=== PATIENT | female | born 1935 | race Caucasian/White ===

== ENCOUNTER → 2016-07-18 | Outpatient (CLI) | payer OTHER ==
[~2016-07-18] MED LIST: ATEN-175 PO; CLR10 PO; CZR50 PO; FLUT0.0529 INTNAS; GLC500 PO; HYDC25 PO; MULT-506 PO; OMEG10007 PO; SIMV10TA2 PO; WARF2TAB PO
== END | disposition home or self-care (01) ==
LOC: C.RDSM 14:12
PROVIDERS: ATTEND Physical Medicine & Rehabilitation Sports Medicine
DX: Z96.651 Presence of right artificial knee joint (principal)

== ENCOUNTER → 2017-01-16 | Outpatient (CLI) | payer OTHER ==
--- NOTE | 2017-01-16 15:36 | MAMMOGRAPHY REPORT ---
BILATERAL DIGITAL SCREENING MAMMOGRAM WITH CAD: 01/16/2017 CLINICAL HISTORY: Routine screening. TECHNIQUE: Bilateral CC, MLO and right exaggerated lateral CC views were obtained. Current study wa s also evaluated with a Computer Aided Detection (CAD) system. COMPARISON: Comparison is made to exams dated: 01/14/2016 mammogram, 12/31/2014 mammogram, 12/30/2013 mammogram, 12/26/2012 mammogram, 12/26/2011 mammogram, and 12/22/2010 mammogram - [facility]. BREAST COMPOSITION: The tissue of both breasts is almost entirely fatty. FINDINGS: There are benign rim calcifications in both breasts. No suspicious mass, architectural di stortion or cluster of microcalcifications is seen. IMPRESSION: ACR BI-RADS CATEGORY 2: BENIGN There is no mammographic evidence of malignancy. A 1 year screening mammogram is recommended. The pa tient will receive written notification of the results. Approximately 10% of breast cancers are not detected with mammography. A negative mammographic report should not delay biopsy if a clinically suggestive mass is present. Olivia Neal M.D. ay/:01/16/2017 14:23:18 Imaging Services Director: Chana Walsh RT(R)(M), [facility] letter sent: Normal 1/2 BI-RADS Code: ACR BI-RADS Category 2: Benign
== END | disposition home or self-care (01) ==
LOC: C.MAMM 09:52
PROVIDERS: ATTEND Family Medicine
DX: Z12.31 Encounter for screening mammogram for malignant neoplasm of breast (principal)

== ENCOUNTER → 2017-05-30 | Outpatient (CLI) | payer OTHER ==
--- NOTE | 2017-05-30 09:43 | DIAGNOSTIC IMAGING REPORT ---
RIGHT SHOULDER 3 VIEWS CLINICAL HISTORY: Right shoulder injury. FINDINGS: 3 views of the right shoulder are obtained. No prior studies are available for comparison at the time of dictation. The skeletal structures are osteopenic. No fracture or dislocation is identified. Mild productive change is seen at the acromioclavicular joint. Degenerative spurring is noted in the humeral head. The glenohumeral articulation is maintained. A 10 mm calcified joint body is noted. The overlying soft tissues are normal in appearance. The visualized right lung parenchyma appears clear. IMPRESSION: 1. No acute bony abnormality is seen in the right shoulder. 2. Osteopenia with degenerative change and calcified joint body as above. Electronically signed by: Khoa Gibson M.D. 05/30/2017 9:42 AM Dictated Date/Time: 05/30/2017 9:40 AM
== END | disposition home or self-care (01) ==
LOC: C.RDSM 13:59
PROVIDERS: ATTEND Physician Assistant
DX: S49.90XA Unspecified injury of shoulder and upper arm, unspecified arm, initial encounter (principal); X58.XXXA Exposure to other specified factors, initial encounter; M85.811 Other specified disorders of bone density and structure, right shoulder

== ENCOUNTER → 2017-07-17 | Outpatient (CLI) | payer OTHER | END | disposition home or self-care (01) | LOC: C.RDSM 18:29 | PROVIDERS: ATTEND Physical Medicine & Rehabilitation Sports Medicine | DX: M17.0 Bilateral primary osteoarthritis of knee (principal); Z96.651 Presence of right artificial knee joint ==

== ENCOUNTER 2018-05-16 04:44 | Inpatient (IN) ==
[2018-05-16] MEDS ORDERED: ALBUT/IPRATROP 3MG/0.5MG NEB 3 ML VIAL INH STA (05:31)
[2018-05-16 05:52] LABS: Basophils # (auto) 0.02 K/uL (0-0.2); Basophils % (auto) 0.2 %; Eosinophils % (auto) 0.9 %; Hematocrit (blood only) 43.2 % (37-47); Hemoglobin 14.6 g/dL (12.0-16.0); Immature Granulocytes # (auto) 0.02 K/uL (0.00-0.02); Immature Granulocytes % (auto) 0.2 %; Lymphocytes # (auto) 0.54 K/uL (1.2-3.4); Lymphocytes % (auto) 4.9 %; Mean Corpuscular Hgb Conc 33.8 g/dL (32-36); Mean Corpuscular Volume 93.5 fL (80-100); Mean Platelet Volume 10.8 fL (7.4-10.4); Monocytes # (auto) 0.83 K/uL (0.11-0.59); Monocytes % (auto) 7.6 %; Neutrophils # (auto) 9.46 K/uL (1.4-6.5); Neutrophils % (auto) 86.2 %; Platelet Count 150 K/uL (130-400); RDW Standard Deviation 48.1 fL (36.4-46.3); Red Blood Count 4.62 M/uL (4.2-5.4); White Blood Count 10.97 K/uL (4.8-10.8)
[2018-05-16 06:05] LABS: Partial Thromboplastin Ratio 0.9; Partial Thromboplastin Time 23.1 Seconds (21.0-31.0); Prothrombin Time 10.6 Seconds (9.0-12.0)
[2018-05-16 06:10] LABS: Alanine Aminotransferase 85 U/L (12-78); Albumin Level 3.9 gm/dl (3.4-5.0); Aspartate Aminotransferase 42 U/L (15-37); BUN Creatinine Ratio 18.7 (10-20); Blood Urea Nitrogen 17 mg/dl (7-18); Calcium 8.9 mg/dl (8.5-10.1); Carbon Dioxide 28 mmol/L (21-32); Chloride 100 mmol/L (98-107); Creatinine Clr Calc Pharmacy 62.5 ml/min; Est GFR (African American) 69.5; Glucose 180 mg/dl (70-99); Potassium 3.9 mmol/L (3.5-5.1); Sodium 135 mmol/L (136-145)
[2018-05-16 06:15] LABS: Alkaline Phosphatase 72 U/L (45-117); Bilirubin,Total 1.1 mg/dl (0.2-1); NT Pro B Type Natriuretic Pept 210 pg/ml (0-1800); Total Protein 7.9 gm/dl (6.4-8.2); Troponin I < 0.015 ng/ml (0-0.045)
[2018-05-16] MEDS ORDERED: methylPREDNISolone 125 MG/2 ML VIAL IV STA (06:31)
--- NOTE | 2018-05-16 06:37 | XRay Report ---
XR chest 1V portable CLINICAL HISTORY: 82 years-old Female presenting with Dyspnea, cough for 4 days. TECHNIQUE: Portable upright AP view of the chest was obtained. COMPARISON: 09/26/2014. FINDINGS: Atherosclerosis of the aortic arch. Cardiac silhouette top normal in size. Mildly low lung volumes wi th hypoventilatory changes. Slight obscuration of the left costophrenic sulcus likely due to overlapp ing soft tissue or pericardial fat. No focal opacity. No large effusion or pneumothorax. Degenerative changes of the thoracic spine. Degenerative changes of the glenohumeral joints. Upper abdomen normal . IMPRESSION: 1. No acute cardiopulmonary disease. Electronically signed by: Jesus Lizarraga M.D. 05/16/2018 6:36 AM
[2018-05-16] MEDS ORDERED: ALBUT/IPRATROP 3MG/0.5MG NEB 3 ML VIAL NEB ONE (06:52)
--- NOTE | 2018-05-16 09:41 | History & Physical Report ---
Date of Service May 16, 2018 Assessment & Plan (1) Bronchitis: Patient likely has a bronchitis with some bronchospasm flu is currently pending patient be placed on azithromycin oral steroids and Xopenex inhalers along with cough suppressant and Robitussin sugar-free to maintain her normal Claritin (2) HTN (hypertension): Patient maintain her normal atenolol and losartan her losartan is not a new medicine for her (3) Diabetes: Patient states that a new medicine for her has been glimepiride her glucoses at home of been below 140 she will maintain the glimepiride and Trulicity with a loose sliding scale without carb coverage and holding metformin at this time History of Present Illness Primary Care Provider: Winston Ornelas DO Patient began developing a cough and upper respiratory symptoms approximately 4- 5 days ago. This occurred after they were out to eat. Her had recently had an upper respiratory infection that was remedied by vitamin C. 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 Patient presents with progressive worsening of a loose cough. She has had no fevers or chills at home. He is not hypoxic on presentation. Chest x-ray does not show pneumonia currently influenza is pending Allergies Allergy/AdvReac Type Severity Reaction Status Date / Time amoxicillin Allergy Anaphylaxis Verified 05/16/18 06:51 Home Medications Home Medications Medication Instructions Recorded Confirmed Type aspirin 81 mg PO DAILY 05/16/18 05/16/18 History atenolol 100 mg PO DAILY 05/16/18 05/16/18 History atorvastatin 10 mg PO DAILY 05/16/18 05/16/18 History dulaglutide [Trulicity] 1.5 unit SUBCUT WK 05/16/18 05/16/18 History gabapentin 300 mg PO TID 05/16/18 05/16/18 History glimepiride 1 mg PO QAM 05/16/18 05/16/18 History hydrochlorothiazide 25 mg PO QAM 05/16/18 05/16/18 History loratadine [Claritin] 10 mg PO DAILY 05/16/18 05/16/18 History losartan 100 mg PO QAM 05/16/18 05/16/18 History metformin 1,000 mg PO BIDM 05/16/18 05/16/18 History warphcmy-ixy-lvcf-FA-lutein 1 tab PO DAILY 05/16/18 05/16/18 History [[facility] Women] omega 7-qzs-vsz-fish oil [Fish Oil] 1 cap PO DAILY 05/16/18 05/16/18 History polyethylene glycol 3350 17 g PO DAILY PRN 05/16/18 05/16/18 History Past Med/Surg History Medical History Right knee DJD (Acute) Diabetes HTN (hypertension) Family History Other Family history non-contributory Social History Current Living Situation: Spouse Other Information That Helps Us Care for You: No Feels Safe at Home: Yes Safety Concerns: Feels Safe At This Time Smoking Status: Never smoker Hx Alcohol Use: Yes Alcohol type: wine Alcohol Intake Frequency: a few times a month Hx Substance Use: No Beliefs That Will Affect Care: None Preferred Language: Taj[place] Communication Ability: Effective Review of Systems ROS: well nourished well developed. No double vision blurry vision No problems with speech or swallowing, but sore thoat No palpitations, chest pain or pressure loose non productive cough No abdominal pain nausea vomiting diarrhea changes in appetite or weight No burning urine urine frequency or changes in color No focal joint pain or muscle pain No skin rashes or oral lesions No unusual bruising or bleeding No focused back pain or numbness or loss of strength No changes in memory or confusion Physical Exam 2 Vital Signs (Past 24 Hours): Last Vital Signs Temp 36.8 C 05/16/18 04:48 Pulse 95 H 05/16/18 09:28 Resp 20 05/16/18 09:28 BP 101/77 05/16/18 09:28 Pulse Ox 94 05/16/18 09:28 The patient appeared well nourished and normally developed. Vital signs as documented. Head exam is unremarkable. normocephalic, atraumatic Oropharynx shows some mild erythema no exudates Neck is without jugular venous distension, thyromegaly, or lymphademopathy Lungs are coarse tubular breath sounds throughout no egophony no increased fremitus no loss of breath sounds no wheezes Cardiac exam reveals Rhythm is regular. First and second heart sounds normal. Abdominal exam reveals normal bowel sounds, no masses, no organomegaly Extremities are nonedematous and both pedal pulses are present Neurologic exam is A&Ox3, no focal deficits, strength is equal bilateral Psychologically seems neither anxious or depressed Skin is warm Dry without bruises or lesions
[2018-05-16] MEDS ORDERED: CARBOHYDRATES FOR HYPOGLYCEMIA PO PRN (10:05)
[2018-05-16] MEDS ORDERED: ONDANSETRON INJ 2 MG/ML 2 ML VIAL IV PRN (10:05)
[2018-05-16] MEDS ORDERED: POLYETHYLENE (MIRALAX) 17 GM PACK PO PRN (10:05)
[2018-05-16] MEDS ORDERED: DEXTROSE 50% 50 ML SYRINGE IV PRN (10:05)
[2018-05-16] MEDS ORDERED: GLUCAGON FOR INJ 1 MG VIAL SQ PRN (10:05)
[2018-05-16] MEDS ORDERED: GLUCOSE 10 TABS/TUBE PO PRN (10:05)
[2018-05-16] MEDS ORDERED: AZITHROMYCIN 250 MG TAB PO ONE (10:05)
[2018-05-16] MEDS ORDERED: GLUCOSE 40% GEL 15 GM TUBE PO PRN (10:05)
[2018-05-16] MEDS ORDERED: ACETAMINOPHEN 325 MG TAB PO PRN (10:05)
[2018-05-16] MEDS: LOSARTAN POTASSIUM 50 MG TAB PO SCH (11:08)
[2018-05-16] MEDS: ATORVASTATIN 10 MG TAB PO SCH (11:08)
[2018-05-16] MEDS: predniSONE 20 MG TAB PO SCH (11:09)
[2018-05-16] MEDS: GLIMEPIRIDE 2 MG TAB PO SCH (11:09)
[2018-05-16] MEDS: GABAPENTIN 300 MG CAP PO SCH ×3 (11:09→20:36)
[2018-05-16] MEDS: LORATADINE 10 MG TAB PO SCH (11:10)
[2018-05-16] MEDS: ATENOLOL 50 MG TABLET PO SCH (11:10)
[2018-05-16] MEDS: ASPIRIN 81 MG ECTAB PO SCH (11:12)
[2018-05-16] MEDS: INSULIN ASPART 100 UNITS/ML 3 ML PEN SC SCH ×3 (12:59→21:04)
[2018-05-16] MEDS: LEVALBUTEROL HCL 1.25 MG/3 ML NEB NEB SCH ×2 (13:54→19:54)
[2018-05-16] MEDS: [UNRECOGNIZED DRUG - OTHER] SCH (15:06)
[2018-05-16] MEDS: GUAIFENESIN/CODEINE 200MG/20MG 10ML UDC PO PRN (20:45)
[2018-05-17] MEDS: [UNRECOGNIZED DRUG - OTHER] SCH ×2 (00:39→08:26)
[2018-05-17] MEDS: LEVALBUTEROL HCL 1.25 MG/3 ML NEB NEB SCH ×4 (02:51→20:01)
--- NOTE | 2018-05-17 04:47 | Emergency Department Note ---
Entered by Anita Gutiérrez acting as a scribe for Jody Mejia DO History of Present Illness General Chief complaint: Cough Stated complaint: COUGH Time Seen by Provider: 05/16/18 05:04 Source: patient History of Present Illness Onset (ago): day(s) 2 Location: chest Pain Consistency: + other (persistent) Maximum Pain Intensity: 3 Quality: + other (cough) Relieved By: + none Exacerbated By: + other (lying down) Associated symptoms: + denies other symptoms (abdominal pain or change in appetite) Treatments prior to arrival: other (generic cough DM) The patient is an 82 year old female who presents to the Emergency Room with complaints of a persistent cough that began 2 days ago. The patient states that the cough worsened last night, noting that she hasn't been able to sleep well the past two nights. The patient denies any abdominal pain or change in appetite. She states that she took generic cough DM [employer], but it provided no relief. The patient reports that lying down worsens her symptoms. She denies any history of lung problems, and she states that she has never has similar symptoms. The patient notes a history of diabetes. Home Medications Home Medications Medication Instructions Recorded Confirmed Type aspirin 81 mg PO DAILY 05/16/18 05/16/18 History atenolol 100 mg PO DAILY 05/16/18 05/16/18 History atorvastatin 10 mg PO DAILY 05/16/18 05/16/18 History dulaglutide [Trulicity] 1.5 unit SUBCUT WK 05/16/18 05/16/18 History gabapentin 300 mg PO TID 05/16/18 05/16/18 History glimepiride 1 mg PO QAM 05/16/18 05/16/18 History hydrochlorothiazide 25 mg PO QAM 05/16/18 05/16/18 History loratadine [Claritin] 10 mg PO DAILY 05/16/18 05/16/18 History losartan 100 mg PO QAM 05/16/18 05/16/18 History metformin 1,000 mg PO BIDM 05/16/18 05/16/18 History qahahoig-uvi-ifcn-FA-lutein 1 tab PO DAILY 05/16/18 05/16/18 History [Centrum Silver Women] omega [id number]-fish oil [Fish Oil] 1 cap PO DAILY 05/16/18 05/16/18 History polyethylene glycol 3350 17 g PO DAILY PRN 05/16/18 05/16/18 History Allergies Allergy/AdvReac Type Severity Reaction Status Date / Time amoxicillin Allergy Anaphylaxis Verified 05/16/18 06:51 Past Med/Surg History Medical History Right knee DJD (Acute) Diabetes HTN (hypertension) Family History Other Family history non-contributory Social History Current Living Situation: Spouse Other Information That Helps Us Care for You: No Feels Safe at Home: Yes Safety Concerns: Feels Safe At This Time Smoking Status: Never smoker Hx Alcohol Use: Yes Alcohol type: wine Alcohol Intake Frequency: a few times a month Hx Substance Use: No Beliefs That Will Affect Care: None Preferred Language: Ethiopian Communication Ability: Effective Review of Systems See HPI for pertinent positives & negatives. and A total of 10 systems reviewed and were otherwise negative Physical Exam Vital Signs Vital Signs - 24 hr 05/16/18 04:48 05/16/18 05:35 05/16/18 06:40 Temperature 36.8 C Temperature Source Oral Sepsis Recent Fever Within 48 Hours No Sepsis Action Taken by Nursing No Action Required Pulse Rate 87 Pulse Rate [Apical] 82 Pulse Rate [Left Finger] Pulse Rhythm [Apical] Pulse Strength [Apical] Respiratory Rate 20 20 Respiratory Effort / Characteristics Non-Labored Respiratory Depth Normal Respiratory Pattern Blood Pressure 147/75 H Blood Pressure [Right Arm] 157/65 H Blood Pressure Mean 99 Blood Pressure Mean [Right Arm] 95 Blood Pressure Position [Right Arm] Pulse Oximetry 96 93 Oxygen Delivery Method Room Air Room Air Room Air Oxygen Flow Rate 05/16/18 07:19 05/16/18 08:37 05/16/18 08:52 Temperature Temperature Source Sepsis Recent Fever Within 48 Hours Sepsis Action Taken by Nursing Pulse Rate Pulse Rate [Apical] 76 96 H Pulse Rate [Left Finger] Pulse Rhythm [Apical] Regular Pulse Strength [Apical] Normal Respiratory Rate 24 18 Respiratory Effort / Characteristics Spontaneous Non-Labored Spontaneous Respiratory Depth Normal Respiratory Pattern Regular Blood Pressure Blood Pressure [Right Arm] 131/72 Blood Pressure Mean Blood Pressure Mean [Right Arm] 91 Blood Pressure Position [Right Arm] Lying Pulse Oximetry 91 93 89 L Oxygen Delivery Method Room Air Room Air Room Air Oxygen Flow Rate 05/16/18 08:53 05/16/18 09:18 05/16/18 09:28 Temperature Temperature Source Sepsis Recent Fever Within 48 Hours Sepsis Action Taken by Nursing Pulse Rate 95 H Pulse Rate [Apical] Pulse Rate [Left Finger] Pulse Rhythm [Apical] Pulse Strength [Apical] Respiratory Rate 20 Respiratory Effort / Characteristics Spontaneous Short of Breath SOB on Exertion Respiratory Depth Shallow Respiratory Pattern Tachypnea Blood Pressure 101/77 Blood Pressure [Right Arm] Blood Pressure Mean Blood Pressure Mean [Right Arm] Blood Pressure Position [Right Arm] Pulse Oximetry 93 94 Oxygen Delivery Method Nasal Cannula Nasal Cannula Nasal Cannula Oxygen Flow Rate 2 2 4 05/16/18 10:13 05/16/18 13:54 05/16/18 16:00 Temperature 36.7 C Temperature Source Oral Sepsis Recent Fever Within 48 Hours Sepsis Action Taken by Nursing Pulse Rate Pulse Rate [Apical] 100 H Pulse Rate [Left Finger] 100 H Pulse Rhythm [Apical] Regular Pulse Strength [Apical] Normal Respiratory Rate 22 18 Respiratory Effort / Characteristics Short of Breath Non-Labored Spontaneous Short of Breath Respiratory Depth Normal Respiratory Pattern Regular Regular Blood Pressure Blood Pressure [Right Arm] 169/92 H Blood Pressure Mean Blood Pressure Mean [Right Arm] 117 Blood Pressure Position [Right Arm] Sitting Pulse Oximetry 95 95 Oxygen Delivery Method Nasal Cannula Nasal Cannula Nasal Cannula Oxygen Flow Rate 2 3 2 05/16/18 16:18 05/16/18 19:59 05/16/18 23:23 Temperature 37.1 C 36.8 C Temperature Source Oral Oral Sepsis Recent Fever Within 48 Hours Sepsis Action Taken by Nursing Pulse Rate Pulse Rate [Apical] Pulse Rate [Left Finger] 95 H 91 H 78 Pulse Rhythm [Apical] Pulse Strength [Apical] Respiratory Rate 18 18 18 Respiratory Effort / Characteristics Non-Labored Spontaneous Respiratory Depth Respiratory Pattern Blood Pressure Blood Pressure [Right Arm] 110/71 115/71 Blood Pressure Mean Blood Pressure Mean [Right Arm] 84 85 Blood Pressure Position [Right Arm] Lying Lying Pulse Oximetry 94 91 93 Oxygen Delivery Method Nasal Cannula Nasal Cannula Nasal Cannula Oxygen Flow Rate 2 2 2 05/17/18 00:20 05/17/18 02:53 Temperature Temperature Source Sepsis Recent Fever Within 48 Hours Sepsis Action Taken by Nursing Pulse Rate Pulse Rate [Apical] Pulse Rate [Left Finger] 70 Pulse Rhythm [Apical] Pulse Strength [Apical] Respiratory Rate 18 Respiratory Effort / Characteristics Non-Labored Spontaneous SOB on Exertion Non-Labored Spontaneous Respiratory Depth Normal Respiratory Pattern Regular Blood Pressure Blood Pressure [Right Arm] Blood Pressure Mean Blood Pressure Mean [Right Arm] Blood Pressure Position [Right Arm] Pulse Oximetry 94 Oxygen Delivery Method Nasal Cannula Nasal Cannula Oxygen Flow Rate 2 2 General: Mild respiratory distress, persistent cough. HEENT: Head - normocephalic and atraumatic Pupils are equal, round, and reactive to light. Extraocular eye muscles are intact, and sclera are anicteric. Nose - moist nasal mucosa without discharge. Mouth - moist buccal mucosa. Oropharynx is nonerythematous and there is no tonsillar exudate or edema noted. Neck: Supple; no JVD, nuchal rigidity, cervical lymphadenopathy, or auscultated bruits. Heart: Regular rate and rhythm. There is a normal S1 and S2 with no murmurs, clicks, or gallops appreciated. Lungs: Diffuse rales and wheezes in all lung braga. Abdomen: Soft, completely nontender, nondistended, with good bowel sounds. There are no palpable pulsatile masses or hepatosplenomegaly. There is no guarding, rigidity, or rebound noted. Extremities: No evidence of cyanosis or clubbing. There are easily palpable peripheral pulses. Trace pedal edema. Skin: warm and dry with good turgor and no rashes. Course 0524: Past medical records reviewed. The patient was evaluated in room A02, and a complete history and physical examination were performed. An IV locked was initiated and labs were drawn as above. A twelve-lead EKG was obtained along with a chest x-ray. 0531: Duoneb 3 ml INH 0631: Solumedrol 125 mg IV 0638: I checked on the patient. She was still wheezing significantly. Her O2 saturation was 91%. 0652: The patient was given an hour-long Duoneb 12 ml NEB 0729: I checked on the patient. She was coughing up thick yellow sputum. This will be collected for culture 0804: I updated the patient about her results. She wished to be admitted, because she is not making any improvements. 0809: I spoke with Dr. Colindres, [facility] [place] hospitalist, about the patient's case. He will evaluate her further. Consultations Consultation #1: I spoke with Dr. Colindres, [facility] [place] hospitalist, about the patient 's case. He will evaluate her further. Time: 08:09 Administered Medications Aspirin (Ecotrin Ectab) 81 mg PO DAILY [facility] Stop: 06/15/18 10:04 Last Admin: 05/16/18 11:12 Dose: 81 mg Atenolol (Tenormin) 100 mg PO DAILY [facility] Stop: 06/15/18 10:04 Last Admin: 05/16/18 11:10 Dose: 100 mg Atorvastatin Calcium (Lipitor) 10 mg PO DAILY [facility] Stop: 06/15/18 10:04 Last Admin: 05/16/18 11:08 Dose: 10 mg Gabapentin (Neurontin) 300 mg PO TID [facility] Stop: 06/15/18 10:04 Last Admin: 05/16/18 20:36 Dose: 300 mg Admin: 05/16/18 13:02 Dose: 300 mg Admin: 05/16/18 11:09 Dose: 300 mg Glimepiride (Amaryl) 1 mg PO QAM [facility] Stop: 06/15/18 10:04 Last Admin: 05/16/18 11:09 Dose: 1 mg Guaifenesin/Codeine Phosphate (Robitussin-Ac Sugar Free) 10 ml PO Q6H PRN PRN Reason: Cough Stop: 06/15/18 10:04 Last Admin: 05/16/18 20:45 Dose: 10 ml Insulin Aspart (Novolog Flexpen) 0 units SC ACHS [facility] Stop: 06/15/18 11:29 Last Admin: 05/16/18 21:04 Dose: 8 units Admin: 05/16/18 17:48 Dose: 4 units Admin: 05/16/18 12:59 Dose: 5 units Levalbuterol HCl (Xopenex 1.25mg/3ml Neb) 1.25 mg NEB Q6R [facility] Stop: 06/15/18 13:59 Last Admin: 05/17/18 02:51 Dose: 1.25 mg Admin: 05/16/18 19:54 Dose: 1.25 mg Admin: 05/16/18 13:54 Dose: 1.25 mg Loratadine (Claritin) 10 mg PO DAILY [facility] Stop: 06/15/18 10:04 Last Admin: 05/16/18 11:10 Dose: 10 mg Losartan Potassium (Cozaar) 100 mg PO QAM [facility] Stop: 06/15/18 10:04 Last Admin: 05/16/18 11:08 Dose: 100 mg Miscellaneous (Order Awaiting Action) 1 ea N/A QS [facility] Stop: 06/15/18 15:59 Last Admin: 05/17/18 00:39 Dose: Not Given Admin: 05/16/18 15:06 Dose: Not Given Prednisone (Prednisone) 20 mg PO QAM [facility] Stop: 06/15/18 10:04 Last Admin: 05/16/18 11:09 Dose: 20 mg Discontinued Medications Albuterol (Duoneb) 3 ml INH NOW STA Stop: 05/16/18 05:32 Last Admin: 05/16/18 05:37 Dose: 3 ml Albuterol (Duoneb) 12 ml NEB ONE ONE Stop: 05/16/18 06:53 Last Admin: 05/16/18 07:18 Dose: 12 ml Azithromycin (Zithromax) 500 mg PO NOW ONE Stop: 05/16/18 10:06 Last Admin: 05/16/18 11:11 Dose: 500 mg Methylprednisolone (Solumedrol) 125 mg IV NOW STA Stop: 05/16/18 06:32 Last Admin: 05/16/18 06:40 Dose: 125 mg Medical Decision Making Differential Diagnosis The differential diagnosis includes: bronchitis, pneumonia, heart failure, and PE Medical Records Attestation: I reviewed the patient's medical records. Home Medications Current Medication List: was personally reviewed by me Laboratory Data Attestation: I reviewed the patient's lab results. Result diagrams: 05/16/18 05:40 05/16/18 05:40 Lab Results 05/16/18 05/16/18 05/16/18 Range/Units 05:40 05:40 05:40 WBC 10.97 H (4.8-10.8) K/uL RBC 4.62 (4.2-5.4) M/uL Hgb 14.6 (12.0-16.0) g/dL Hct 43.2 (37-47) % MCV 93.5 (80-100) fL MCH 31.6 (25-34) pg MCHC 33.8 (32-36) g/dL RDW Std Deviation 48.1 H (36.4-46.3) fL RDW Coeff of Chidi 14.0 (11.5-14.5) % Plt Count 150 (130-400) K/uL MPV 10.8 H (7.4-10.4) fL Immature Gran % (Auto) 0.2 % Neut % (Auto) 86.2 % Lymph % (Auto) 4.9 % [place] % (Auto) 7.6 % Eos % (Auto) 0.9 % Baso % (Auto) 0.2 % Immature Gran # (Auto) 0.02 (0.00-0.02) K/uL Neut # (Auto) 9.46 H (1.4-6.5) K/uL Lymph # (Auto) 0.54 L (1.2-3.4) K/uL [place] # (Auto) 0.83 H (0.11-0.59) K/uL Eos # (Auto) 0.10 (0-0.5) K/uL Baso # (Auto) 0.02 (0-0.2) K/uL PT 10.6 (9.0-12.0) Seconds INR 1.0 (0.9-1.1) APTT 23.1 (21.0-31.0) Seconds PTT Ratio 0.9 Sodium 135 L (136-145) mmol/L Potassium 3.9 (3.5-5.1) mmol/L Chloride 100 (98-107) mmol/L Carbon Dioxide 28 (21-32) mmol/L Anion Gap 7.0 (3-11) BUN 17 (7-18) mg/dl Creatinine 0.90 (0.6-1.2) mg/dl Est Cr Clr Drug Dosing 62.5 ml/min Est GFR ( Amer) 69.5 Est GFR (Non-Af Amer) 60.0 BUN/Creatinine Ratio 18.7 (10-20) Glucose 180 H (70-99) mg/dl POC Glucose (70-99) Calcium 8.9 (8.5-10.1) mg/dl Total Bilirubin 1.1 H (0.2-1) mg/dl AST 42 H (15-37) U/L ALT 85 H (12-78) U/L Alkaline Phosphatase 72 (45-117) U/L Troponin I < 0.015 (0-0.045) ng/ml NT-Pro-B Natriuret Pep 210 (0-1800) pg/ml Total Protein 7.9 (6.4-8.2) gm/dl Albumin 3.9 (3.4-5.0) gm/dl Globulin 4.0 (2.5-4.0) gm/dl Albumin/Globulin Ratio 1.0 (0.9-2) Influenza Type A Ag (Neg) Influenza Type B Ag (Neg) 05/16/18 05/16/18 05/16/18 Range/Units 08:29 11:09 17:06 WBC (4.8-10.8) K/uL RBC (4.2-5.4) M/uL Hgb (12.0-16.0) g/dL Hct (37-47) % MCV (80-100) fL MCH (25-34) pg MCHC (32-36) g/dL RDW Std Deviation (36.4-46.3) fL RDW Coeff of Chidi (11.5-14.5) % Plt Count (130-400) K/uL MPV (7.4-10.4) fL Immature Gran % (Auto) % Neut % (Auto) % Lymph % (Auto) % [place] % (Auto) % Eos % (Auto) % Baso % (Auto) % Immature Gran # (Auto) (0.00-0.02) K/uL Neut # (Auto) (1.4-6.5) K/uL Lymph # (Auto) (1.2-3.4) K/uL [place] # (Auto) (0.11-0.59) K/uL Eos # (Auto) (0-0.5) K/uL Baso # (Auto) (0-0.2) K/uL PT (9.0-12.0) Seconds INR (0.9-1.1) APTT (21.0-31.0) Seconds PTT Ratio Sodium (136-145) mmol/L Potassium (3.5-5.1) mmol/L Chloride (98-107) mmol/L Carbon Dioxide (21-32) mmol/L Anion Gap (3-11) BUN (7-18) mg/dl Creatinine (0.6-1.2) mg/dl Est Cr Clr Drug Dosing ml/min Est GFR ( Amer) Est GFR (Non-Af Amer) BUN/Creatinine Ratio (10-20) Glucose (70-99) mg/dl POC Glucose 258 H 245 H (70-99) Calcium (8.5-10.1) mg/dl Total Bilirubin (0.2-1) mg/dl AST (15-37) U/L ALT (12-78) U/L Alkaline Phosphatase (45-117) U/L Troponin I (0-0.045) ng/ml NT-Pro-B Natriuret Pep (0-1800) pg/ml Total Protein (6.4-8.2) gm/dl Albumin (3.4-5.0) gm/dl Globulin (2.5-4.0) gm/dl Albumin/Globulin Ratio (0.9-2) Influenza Type A Ag Neg for Influ A (Neg) Influenza Type B Ag Neg for Influ B (Neg) 05/16/18 Range/Units 20:30 WBC (4.8-10.8) K/uL RBC (4.2-5.4) M/uL Hgb (12.0-16.0) g/dL Hct (37-47) % MCV (80-100) fL MCH (25-34) pg MCHC (32-36) g/dL RDW Std Deviation (36.4-46.3) fL RDW Coeff of Chidi (11.5-14.5) % Plt Count (130-400) K/uL MPV (7.4-10.4) fL Immature Gran % (Auto) % Neut % (Auto) % Lymph % (Auto) % [place] % (Auto) % Eos % (Auto) % Baso % (Auto) % Immature Gran # (Auto) (0.00-0.02) K/uL Neut # (Auto) (1.4-6.5) K/uL Lymph # (Auto) (1.2-3.4) K/uL [place] # (Auto) (0.11-0.59) K/uL Eos # (Auto) (0-0.5) K/uL Baso # (Auto) (0-0.2) K/uL PT (9.0-12.0) Seconds INR (0.9-1.1) APTT (21.0-31.0) Seconds PTT Ratio Sodium (136-145) mmol/L Potassium (3.5-5.1) mmol/L Chloride (98-107) mmol/L Carbon Dioxide (21-32) mmol/L Anion Gap (3-11) BUN (7-18) mg/dl Creatinine (0.6-1.2) mg/dl Est Cr Clr Drug Dosing ml/min Est GFR ( Amer) Est GFR (Non-Af Amer) BUN/Creatinine Ratio (10-20) Glucose (70-99) mg/dl POC Glucose 273 H (70-99) Calcium (8.5-10.1) mg/dl Total Bilirubin (0.2-1) mg/dl AST (15-37) U/L ALT (12-78) U/L Alkaline Phosphatase (45-117) U/L Troponin I (0-0.045) ng/ml NT-Pro-B Natriuret Pep (0-1800) pg/ml Total Protein (6.4-8.2) gm/dl Albumin (3.4-5.0) gm/dl Globulin (2.5-4.0) gm/dl Albumin/Globulin Ratio (0.9-2) Influenza Type A Ag (Neg) Influenza Type B Ag (Neg) Imaging Data Attestation: I personally reviewed and interpreted this imaging study as follows : My Impression: XR CHEST 1V: No cardiomegaly. No obvious pleural effusion. Mild pulmonary congestion. ECG Data Attestation: I personally reviewed and interpreted this ECG as follows: Indication: other (persistent cough) Rate (beats per minute): 79 Rhythm: normal sinus Findings: + other (no ischemia); no ectopy Blood Pressure Blood Pressure Findings: Elevated blood pressure Blood Pressure Disposition: further management by hospitalist [facility] Narrative The patient is an 82 year old female who presents to the Emergency Room with complaints of a persistent cough that began 2 days ago. The patient developed cold-like symptoms just 2 days ago. Overnight tonight, the patient's symptoms dramatically worsened with increasing shortness of breath and wheezing. The patient has a very persistent wet cough. She received beta agonist nebulizer treatment here in the emergency department with only minimal relief of her symptoms. Chest x-ray showed no evidence of pneumonia or obvious pulmonary edema. While here in the emergency department, the patient did develop a significant wet productive cough of thick yellow sputum. I discussed the case with Dr. Colindres from the [facility] Hospitalist group and he recommended we obtain a flu swab. This was negative. They have agreed to evaluate the patient for further inpatient care. Impression & Plan SOB (shortness of breath), Bronchitis Discharge Plan Visit Data *Final* Discharge Date/Time: 05/16/18 09:28 Chief Complaint: Cough Stated Complaint: COUGH ED Provider: Jody Mejia Discharge Problem: SOB (shortness of breath), Bronchitis Patient Disposition: Admitted As Inpatient Discharge Instructions Interventions: ED Discharge Assessment Last Done: 05/16/18 09:28 The scribe's documentation has been prepared under my direction and personally reviewed by me in its entirety. I confirm that the note above accurately reflects all work, treatment, procedures, and medical decision making performed by me.
[2018-05-17 07:00] LABS: Hematocrit (blood only) 40.3 % (37-47); Hemoglobin 13.1 g/dL (12.0-16.0); Mean Corpuscular Hgb Conc 32.5 g/dL (32-36); Mean Corpuscular Volume 94.8 fL (80-100); Mean Platelet Volume 10.5 fL (7.4-10.4); Platelet Count 136 K/uL (130-400); RDW Coefficient of Variation 14.6 % (11.5-14.5); RDW Standard Deviation 50.8 fL (36.4-46.3); Red Blood Count 4.25 M/uL (4.2-5.4); White Blood Count 9.55 K/uL (4.8-10.8)
[2018-05-17 07:38] LABS: BUN Creatinine Ratio 30.4 (10-20); Creatinine Clr Calc Pharmacy 61.8 ml/min; Est GFR (African American) 68.6; Est GFR (Non-African American) 59.2; Potassium 3.5 mmol/L (3.5-5.1)
[2018-05-17 07:52] LABS: Estimated Average Glucose 128 mg/dl
[2018-05-17] MEDS: GABAPENTIN 300 MG CAP PO SCH ×3 (08:24→20:37)
[2018-05-17] MEDS: ASPIRIN 81 MG ECTAB PO SCH (08:24)
[2018-05-17] MEDS: ATENOLOL 50 MG TABLET PO SCH (08:24)
[2018-05-17] MEDS: AZITHROMYCIN 250 MG TAB PO SCH (08:24)
[2018-05-17] MEDS: ATORVASTATIN 10 MG TAB PO SCH (08:24)
[2018-05-17] MEDS: GLIMEPIRIDE 2 MG TAB PO SCH (08:25)
[2018-05-17] MEDS: predniSONE 20 MG TAB PO SCH (08:25)
[2018-05-17] MEDS: LORATADINE 10 MG TAB PO SCH (08:25)
[2018-05-17] MEDS: LOSARTAN POTASSIUM 50 MG TAB PO SCH (08:25)
[2018-05-17] MEDS: INSULIN ASPART 100 UNITS/ML 3 ML PEN SC SCH ×4 (08:28→20:37)
--- NOTE | 2018-05-17 19:37 | Hospitalist Progress Note ---
Date of Service May 17, 2018 Assessment & Plan (1) Bronchitis: Patient likely has a bronchitis with some bronchospasm flu is negative, patient be placed on azithromycin oral steroids and Xopenex inhalers along with cough suppressant and Robitussin sugar-free to maintain her normal Claritin (2) HTN (hypertension): Patient maintain her normal atenolol and losartan her losartan is not a new medicine for her (3) Diabetes: Patient states that a new medicine for her has been glimepiride her glucoses at home of been below 140 she will maintain the glimepiride and Trulicity with a loose sliding scale without carb coverage and holding metformin at this time Subjective pt is still with loose cough, still no temperature, she has no diarrhea Review of Systems ROS: well nourished well developed. No double vision blurry vision No problems with speech or swallowing No palpitations, chest pain or pressure She is a loose cough with paroxysms when she exerts herself No abdominal pain nausea vomiting diarrhea changes in appetite or weight No burning urine urine frequency or changes in color No focal joint pain or muscle pain No skin rashes or oral lesions No unusual bruising or bleeding No focused back pain or numbness or loss of strength No changes in memory or confusion Physical Exam 2 Vital Signs (Past 24 Hours): Last Vital Signs Temp 36.9 C 05/17/18 16:31 Pulse 82 05/17/18 16:31 Resp 18 05/17/18 16:31 BP 131/78 05/17/18 16:31 Pulse Ox 90 05/17/18 16:31 The patient appeared well nourished and normally developed. Vital signs as documented. Head exam is unremarkable. normocephalic, atraumatic Oropharynx remains without exudates Neck is without jugular venous distension, thyromegaly, or lymphademopathy Lungs are clear to auscultation and percussion. However she is also loose rhonchorous cough with deep exam she does not have any egophony or focal air loss Cardiac exam reveals Rhythm is regular. First and second heart sounds normal. Abdominal exam reveals normal bowel sounds, no masses, no organomegaly Extremities are nonedematous and both pedal pulses are present Neurologic exam is A&Ox3, no focal deficits, strength is equal bilateral Psychologically seems neither anxious or depressed Skin is warm Dry without bruises or lesions
[2018-05-17] MEDS: GUAIFENESIN/CODEINE 200MG/20MG 10ML UDC PO PRN (22:12)
[2018-05-18] MEDS: LEVALBUTEROL HCL 1.25 MG/3 ML NEB NEB SCH ×2 (02:10→07:46)
[2018-05-18 07:34] LABS: Hematocrit (blood only) 40.7 % (37-47); Hemoglobin 13.5 g/dL (12.0-16.0); Mean Corpuscular Hgb Conc 33.2 g/dL (32-36); Mean Corpuscular Volume 96.2 fL (80-100); Mean Platelet Volume 10.3 fL (7.4-10.4); Platelet Count 127 K/uL (130-400); RDW Coefficient of Variation 14.6 % (11.5-14.5); RDW Standard Deviation 51.6 fL (36.4-46.3); Red Blood Count 4.23 M/uL (4.2-5.4); White Blood Count 7.27 K/uL (4.8-10.8)
[2018-05-18 08:06] LABS: BUN Creatinine Ratio 33.7 (10-20); Calcium 9.1 mg/dl (8.5-10.1); Est GFR (African American) 86.6; Est GFR (Non-African American) 74.8; Potassium 3.7 mmol/L (3.5-5.1)
[2018-05-18] MEDS: GLIMEPIRIDE 2 MG TAB PO SCH (08:36)
[2018-05-18] MEDS: LORATADINE 10 MG TAB PO SCH (08:37)
[2018-05-18] MEDS: LOSARTAN POTASSIUM 50 MG TAB PO SCH (08:37)
[2018-05-18] MEDS: ATORVASTATIN 10 MG TAB PO SCH (08:38)
[2018-05-18] MEDS: ASPIRIN 81 MG ECTAB PO SCH (08:38)
[2018-05-18] MEDS: predniSONE 20 MG TAB PO SCH (08:39)
[2018-05-18] MEDS: GABAPENTIN 300 MG CAP PO SCH (08:39)
[2018-05-18] MEDS: ATENOLOL 50 MG TABLET PO SCH (08:39)
[2018-05-18] MEDS: AZITHROMYCIN 250 MG TAB PO SCH (08:40)
[2018-05-18] MEDS: INSULIN ASPART 100 UNITS/ML 3 ML PEN SC SCH (08:42)
[2018-05-18] MEDS: [UNRECOGNIZED DRUG - OTHER] SCH (10:30)
--- NOTE | 2018-05-18 13:11 | Discharge Summary ---
Date of Service May 18, 2018 Admission HPI Per Admitting Provider Patient began developing a cough and upper respiratory symptoms approximately 4- 5 days ago. This occurred after they were out to eat. Her had recently had an upper respiratory infection that was remedied by vitamin C. 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 Patient presents with progressive worsening of a loose cough. She has had no fevers or chills at home. He is not hypoxic on presentation. Chest x-ray does not show pneumonia currently influenza is pending Principal Diagnosis bronchitis bronchospasm Discharge Exam Constitutional well developed and average body habitus Eyes no conjunctival abnormality and no scleral abnormality Neck normal visual inspection and trachea midline Respiratory normal respiratory effort; no respiratory distress Auscultation: lungs clear to auscultation bilaterally Cardiovascular RRR, no murmur, no edema Gastrointestinal (Abdomen) normal bowel sounds, soft, nontender, no hepatosplenomegaly Musculoskeletal no cyanosis or clubbing, extremities motor strength 5/5 Discharge Data Allergies Allergy/AdvReac Type Severity Reaction Status Date / Time amoxicillin Allergy Anaphylaxis Verified 05/16/18 06:51 Hospital Course (1) Bronchitis: Patient likely has a bronchitis with some bronchospasm flu is negative, patient will complete azithromycin oral steroids ( for three more days no taper) and cough suppressant and Robitussin sugar-free to maintain her normal Claritin she is encouraged to follow up with dr Ornelas next week (2) HTN (hypertension): Patient maintain her normal atenolol and losartan her losartan (3) Diabetes: Patient states that a new medicine for her has been glimepiride her glucoses at home of been below 140 she will maintain the glimepiride and Trulicity plus metformin Total Time Total Time Spent Total Time Spent (In Minutes): greater than 30 minutes were required to prepare discharge Discharge Plan Discharge Items Patient Disposition: Home - Self-Care Reason For Visit: UPPER RESPIRATORY ILLNESS Discharge Diagnosis: bronchitis Discharge Goals: Decrease discomfort and Diagnostic testing Activity: Resume your previous activity Non-emergency contact: Primary Care Provider Call non-emergency contact if: you have any medication questions Follow-up/Referrals: Winston Ornelas, [Primary Care Provider] - 05/23/18 2:10 pm (Please, follow up at Dr. Winston Ornelas's office with his associate, Dr. Mays , on MondayMay 23 at 2:10 pm. *If you need to change this appointment, call the office at [phone].) Diet: Carb Consistent or DM2 Addtl Provider Instructions: please rest and recuperate, follow up with Dr Ornelas Prescriptions: New azithromycin [Zithromax] 250 mg Tablet 250 mg PO QAM Qty: 3 RF: 0 prednisone 20 mg Tablet 20 mg PO QAM Qty: 3 RF: 0 codeine-guaifenesin [Cheratussin AC] 10-100 mg/5 mL Liquid 10 ml PO Q6H PRN (Reason: cough) Qty: 120 RF: 0 Continue atorvastatin 10 mg tablet 10 mg PO DAILY RF: 0 atenolol 100 mg tablet 100 mg PO DAILY RF: 0 metformin 1,000 mg tablet 1,000 mg PO BIDM RF: 0 polyethylene glycol 3350 17 gram/dose powder 17 g PO DAILY PRN (Reason: Constipation) RF: 0 losartan 100 mg tablet 100 mg PO QAM RF: 0 omega 0-fpl-iot-fish oil [Fish Oil] 1,000 mg (120 mg-180 mg) Capsule 1 cap PO DAILY RF: 0 dulaglutide 1.5 mg/0.5 mL pen injector 1.5 unit subcut WK RF: 0 glimepiride 1 mg tablet 1 mg PO QAM RF: 0 gabapentin 300 mg capsule 300 mg PO TID RF: 0 hydrochlorothiazide 25 mg tablet 25 mg PO QAM RF: 0 loratadine [Claritin] 10 mg Tablet 10 mg PO DAILY RF: 0 fcbluidy-vlz-lqve-FA-lutein [Centrum Silver Women] 8 mg iron-400 mcg-300 mcg Tablet 1 tab PO DAILY RF: 0 aspirin 81 mg Tablet,Delayed Release (Dr/Ec) 81 mg PO DAILY RF: 0 Stand-Alone Forms: [facility] Discharge Orders: Discharge Order (Routine); Ordered 05/18/18 Ordered By: Spencer Colindres Admission Data Admit Date/Time: 05/16/18 08:38 Attending Provider: Spencer Colindres Admit Provider: Spencer Colindres Primary Care Provider: Winston Ornelas Service: Medical Other Interventions: Discharge Summary Assessment (RN) Last Done: 05/18/18 10:48 DC Date/Time DO NOT enter until pt leaves facility: 05/18/18 11:20
== END 2018-05-18 11:20 | disposition home or self-care (01) | DRG 203 ==
LOC: 4W 04:44 → ED 04:44 → 4W 09:28

== ENCOUNTER 2023-09-10 20:32 | Inpatient (IN) ==
--- OUTSIDE RECORDS SUMMARY | 2023-09-10 20:39 | External Medical Summary | Continuity of Care Document ---
Author Name Unknown Organization [facility] [address] [address] [place] [phone] Care Team Providers Care Physical Plant Manager Name Role Phone Winston Ornelas Primary Care Physician [phone] Encounter [facility] [id number] Date(s): 08/16/23 - 08/16/23 [facility] 0 [facility] 207 [facility] [address] [id number] [phone] Encounter Diagnosis Body mass index [BMI] 34.0-34.9, adult(Discharge Diagnosis) - 08/16/23 Hypertension(Discharge Diagnosis) - 08/16/23 NIDDM(Discharge Diagnosis) - 08/16/23 Low vitamin B12 level(Discharge Diagnosis) - 08/16/23 Psoriasis(Discharge Diagnosis) - 08/16/23 Low vitamin D level(Discharge Diagnosis) - 08/16/23 Discharge Disposition: Home or Self Care Attending Physician: DO Ornelas Franklin J Allergies, Adverse Reactions, Alerts Substance Criticality Severity Reaction Reaction Severity Status amoxicillin Active penicillins Anaphylaxis Active Assessment and Plan Extracted from: Title:General Exam * Author:DO Ornelas Franklin J Date:08/16/23 Impression and Plan Diagnosis NIDDM (QFD42-XC E11.9, Discharge, Medical). Hypertension (GYV93-DH I10, Discharge, Medical). Psoriasis (PID51-MM L40.9, Discharge, Medical). Low vitamin D level (CIL71-ZP R79.89, Discharge, Medical). Low vitamin B12 level (VYG80-XH R79.89, Discharge, Medical). Plan: Psoriasis (chronic/not at goal) She is hesitant to use the clobetasol due to the greasiness Will try clobetasol spray; this may provide similar benefit with less of the greasiness Some of this will depend on insurance coverage; she will let me know if it is cost prohibitive Urinary incontinence (chronic/stable) Constipation (chronic/stable) Both her urinary incontinence and chronic constipation have improved Gastroenterology and Urology consultation reviewed Continue current medications Hypertension (chronic/stable) At goal BMP from May, at [facility] reviewed; serum creatinine and potassium within normal Diabetes (chronic/stable) Excellent control; most recent A1c 6.9% She continues care with endocrinology and has follow-up with them next month Less episodes of hypoglycemia with looser goals History of elevated liver enzymes (chronic/stable) LFTs within normal limits on most recent lab work Previous hepatic ultrasound was unremarkable Recheck LFTs and we will continue to check likely every 6 months to assure stability Dyslipidemia (chronic/stable) Continues to tolerate low-dose statin Gait dysfunction(chronic/stable) Left knee pain/left leg pain Mobility and gait stability improved with physical therapy/personal care assistant Orthopedic notes reviewed. . Orders PowerOrders Laboratory: CMP Request (Order): Routine, 08/16/2023 14:43 EDT, Requested Timeframe In 6 Months Vitamin D, 25-Hydroxy Level, Total Request (Order): Routine, 08/16/2023 14:44 EDT, Requested Timeframe In 6 Months B12 Level Request (Order): Routine, 08/16/2023 14:44 EDT, Requested Timeframe In 6 Months CBC w Platelets and Diff Request (Order): Routine, 08/16/2023 14:43 EDT, Requested Timeframe In 6 Months Lipid Profile Request (Order): Routine, 08/16/2023 14:44 EDT, Requested Timeframe In 6 Months, Fasting Patient Care Ambulatory: Follow Up Appointment Ambulatory (Order): In 6 Months, Appointment Type In Office, 40, Follow up With DO Ornelas Franklin J Evaluation and Management: [id number] Outpatient Visit Est Lvl 4 (Order): 08/16/2023 14:45 EDT, FAMILY MEDICINE, Hypertension | NIDDM | Low vitamin B12 level | Psoriasis | Low vitamin D level. PowerOrders Pharmacy: clobetasol 0.05% topical spray (Prescribe): 1 appl, topical, bid, 125 mL, 1 Refill(s). Immunizations Given and Recorded Vaccine Date Status Refusal Reason influenza virus vaccine, inactivated 12/21/20 Give n influenza virus vaccine, inactivated 01/13/20 Give n influenza virus vaccine, inactivated 01/17/19 Give n influenza virus vaccine, inactivated 12/29/17 Give n influenza virus vaccine, inactivated 02/03/17 Give n influenza virus vaccine, inactivated 01/29/15 Give n influenza virus vaccine, inactivated 01/07/14 Give n influenza virus vaccine, inactivated 12/25/12 Give n influenza virus vaccine, inactivated 01/13/12 Give n SARS-CoV-2 (COVID-19) mRNA-1273 vaccine 1 05/22/20 Recorded SARS-CoV-2 (COVID-19) mRNA-1273 vaccine 2 04/24/20 Recorded pneumococcal 23-valent vaccine 10/07/15 Given zoster vaccine live 08/26/14 Recorded pneumococcal 13-valent vaccine 07/21/14 Given 1Result Comment: 2020-09-21: Historical information-source unspecified 2Result Comment: 2020-09-21: Historical information-source unspecified Medications atenolol 100 mg oral tablet Start: 12/05/22 12:55:00 PM EDT, See Instructions, Disp# 90 tab, Refills: 3, TAKE 1 TABLET BY MOUTH EVERY DAY, Pharmacy: [id number] Start Date: 12/05/22 Status: Ordered atorvastatin 10 mg oral tablet Start: 06/12/23 9:11:00 AM EDT, 1 tab, PO, Daily, Disp# 90 tab, Refills: 3, Pharmacy: [id number] Start Date: 06/12/23 Status: Ordered Centrum Women's Start: 07/21/14 9:31:00 AM EDT, 1 tab, PO, Daily Start Date: 07/21/14 Status: Ordered Claritin 24 Hour Allergy 10 mg oral tablet Start: 06/06/23 9:53:00 AM EDT, 1 tab, PO, Daily Start Date: 06/06/23 Status: Ordered clobetasol 0.05% topical ointment Start: 07/10/23 9:05:00 AM EDT, 1 appl, topical, bid, Disp# 30 g, Refills: 1, To post scalp BID PRN,Pharmacy: [id number] Start Date: 07/10/23 Status: Ordered clobetasol 0.05% topical spray Start: 08/16/23 3:01:00 PM EDT, 1 appl, topical, bid, Disp# 125 mL, Refills: 1, Pharmacy: [id number] Start Date: 08/16/23 Status: Ordered Colace 100 mg oral capsule Start: 01/06/20 10:23:00 AM EDT, 1 cap, PO, bid, Disp# 60 cap, Refills: 2, PRN: as needed for constipation, Pharmacy: [id number] Start Date: 01/06/20 Stop Date: 04/05/20 Status: Ordered fluocinonide 0.05% topical solution Start: 02/07/23 9:48:00 AM EST, See Instructions, Disp# 60 mL, Refills: 1, TO red itchy scalp once or twice a day., Pharmacy: [id number] Start Date: 02/07/23 Status: Ordered fluticasone 50 mcg/inh nasal spray Start: 04/18/16 11:34:00 AM EST, 1 spray, each nostril, bid, PRN: allergy symptoms Start Date: 04/18/16 Status: Ordered gabapentin Start: 08/19/20 9:43:00 AM EDT Start Date: 08/19/20 Status: Ordered glimepiride 1 mg oral tablet TAKE 1 TABLET BY MOUTH EVERY DAY WITH BREAKFAST Start Date: 10/03/18 Status: Ordered hydroCHLOROthiazide 25 mg oral tablet Start: 06/12/23 9:11:00 AM EDT, 1 tab, PO, Daily, Disp# 90 tab, Refills: 3, Pharmacy: [id number] Start Date: 06/12/23 Status: Ordered losartan 100 mg oral tablet Start: 04/11/23 12:48:00 PM EST, 0.5 tab, PO, Daily, Disp# 45 tab, Refills: 3, Pharmacy: [id number] Start Date: 04/11/23 Stop Date: 04/05/24 Status: Ordered metFORMIN 1000 mg oral tablet Start: 12/05/22 12:55:00 PM EDT, See Instructions, Disp# 180 tab, Refills: 3, TAKE 1 TABLET BY MOUTHTWO TIMES DAILY, Pharmacy: [id number] Start Date: 12/05/22 Status: Ordered MetroCream 0.75% topical cream Start: 05/19/22 2:22:00 PM EST, 1 appl, topical, bid, Disp# 45 g, Refills: 3, To face twice a day for rosacea( pimples), Pharmacy: [id number] Start Date: 05/19/22 Status: Ordered MiraLax oral powder for reconstitution Start: 01/06/20 10:23:00 AM EDT, See Instructions, Disp# 255 g, Refills: 0, 237 grams, dissolved in64 oz water or gatoraid, and drink 8 oz every 15 minutes until gone., Pharmacy: [id number] Start Date: 01/06/20 Status: Ordered Myrbetriq 25 mg oral tablet, extended release Start: 05/03/22 3:35:00 PM EST, See Instructions, Disp# 90 tab, Refills: 3, TAKE 1 TABLET BY MOUTH EVERY DAY, Pharmacy: [id number] Start Date: 05/03/22 Status: Ordered tenapanor 50 mg oral tablet Start: 04/06/23 10:30:00 AM EST, 1 tab, PO, bid, Disp# 180 tab, Refills: 3, Note to Pharmacy: Chronic Constipation; K59.09 Start Date: 04/06/23 Stop Date: 03/31/24 Status: Ordered Trulicity Pen Start: 07/20/18 9:17:00 AM EDT, See Instructions Start Date: 07/20/18 Status: Ordered Mental Status 08/16/23 Barriers to Learning one year Cognitive deficit Mandatory Health Literacy Documentation Yes Health Literacy Communication Barriers N ever Primary Language Telugu Problem List Condition Confirmation Course Effective Dates Status H ealth Status Informant Back pain. 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 S/P total knee replacement Confirmed Active History of recent fall Confirmed Active Hypertension Confirmed Active Liver function Confirmed Active Actinic keratoses Confirmed Active Neuropathy Confirmed Active NIDDM Confirmed Active Osteoarthritis of left shoulder region Confirmed Active Knee osteoarthritis Confirmed Active Psoriasis Confirmed Active Tarsal tunnel syndrome of right side Confirmed Active Rosacea Confirmed Active Sacroiliac joint dysfunction Confirmed Active Sacroiliac joint inflamed Confirmed Active Seborrhea Confirmed Active Seborrheic keratoses Confirmed Active Sebopsoriasis Confirmed Active Left shoulder pain Confirmed Active Stiffness of right shoulder joint Confirmed Active Tendinopathy of rotator cuff Confirmed Active Ambulatory dysfunction Confirmed Active Weight disorder Confirmed Active Diagnosis Diagnosis Type Effective Dates Health Status Clinical Service Informant Body mass index [BMI] 34.0-34.9, adult Discharge Diagnosis 08/16/23 Non-Specified NIDDM Discharge Diagnosis 08/16/23 Non-Specified Low vitamin B12 level Discharge Diagnosis 08/16/23 Non-Specified Psoriasis Discharge Diagnosis 08/16/23 Non-Specified Low vitamin D level Discharge Diagnosis 08/16/23 Non-Specified Hypertension Discharge Diagnosis 08/16/23 Non-Specified Procedures Procedure Date Related Diagnosis Body Site Status Mammogram 1 02/22/22 Completed Mammogram 2 02/15/21 Completed Oral surgery 04/2020 Completed Bilateral Digital Screening Mammogram Tomosynthesis with synthetic 2D with CAD 3 02/13/20 Completed Mammogram 4, 5 02/06/19 Completed Ultrasound scan of upper abdomen 6 11/22/18 Completed MRI of right upper extremity 7 06/09/17 Completed Mammogram 8 01/16/17 Completed Total replacement of right knee joint 10/22/14 Completed Appendectomy Completed Hysterectomy Completed left rotator cuff repair Completed 1Impression: ACR BI-RADS CATEGORY 1: NEGATIVE 2Impression There is no evidence of malignancy 3Impression: ACR BI RADS CATEGORY 2: Benign There is no mammographic evidence of malignancy. A 1 year screening mammogram is recommended. 4There is no mammographic evidence of malignancy. A one year follow up is recommended. 5(02/06/19) No malignancy. One year screening recommended. 61. normal gallbladder. no gallstones. 2. hepatic steatosis. 3. a 1.2 cm right renal cyst 7Osteoarthritic change at the glenohumeral joint space. Joint effusion. Extensive rotator cuff tendinopathy. Inflammation at the rotator interval. Subacromial/subdeltoid bursitis. 8there is no mammographic evidenc of malignancy. a 1 yr scrrening mommogram is recommended Vital Signs Most recent to oldest [Reference Range]: 1 Height 170 cm (08/16/23 2:12 PM) Patient Weight 98.4 kg (08/16/23 2:12 PM) Body Mass Index 34.05 kg/m2 (08/16/23 2:12 PM) Heart Rate 82 bpm (08/16/23 2:12 PM) Respiratory Rate 18 br/min (08/16/23 2:12 PM) Blood Pressure 122/70mmHg (08/16/23 2:12 PM) Cuff Pulse Pressure 52 mmHg (08/16/23 2:12 PM) Social History Social History Type Response Smoking Status Never smoked cigaret william Sex Female Outpatient Note * DO Ornelas Franklin J: PERFORM, MODIFY, MODIFY, SIGN, VERIFY Event Display: .Outpt Note Authored Date: [id number] Patient: TAMEKA GE Age: 88 years Sex: Female : 1935 Associated Diagnoses: None Author: DO Ornelas Franklin J Visit Information Visit type: Scheduled follow-up. Chief Complaint 08/16/2023 14:10 EDT 6 month f/u. History of Present Illness Tameka is here for 6 month follow up. Less hypoglycemic episodes with discontinuation of her sulfonylurea. She continues to follow with endocrinology for management of her diabetes; they have been managing her fairly tight in terms of A1c until recently; with a little bit loose and goals, it seems that she is feeling a bit better, certainly no recurrent episodes of hypoglycemia. She is also added some higher calorie snacks before bedwhich has prevented nocturnal hypoglycemia. Has been using clobetasol ointment on her scalp Psoriasis ; it seems to be worse than before, and her biggest complaint is the greasiness of the ointment. salesforce trainer three times per week (three 1/2-hour appointments). This seems to be helping her overall mobility. Still uses a wheeled walker for most trips out of the house. Review of Systems Constitutional: Negative. Respiratory: Negative. Cardiovascular: Negative. Integumentary: Dryness. Health Status Allergies: Allergic Reactions (Selected) Severity Not Documented Amoxicillin- No reactions were documented. Penicillins- Anaphylaxis.. Current medications: (Selected) Prescriptions Prescribed Colace 100 mg oral capsule: 1 cap, PO, bid, for 30 day, PRN: as needed for constipation, 60 cap, 2 Refill(s) MetroCream 0.75% topical cream: 1 appl, topical, bid, To face twice a day for rosacea( pimples), 45g, 3 Refill(s) MiraLax oral powder for reconstitution: See Instructions, 237 grams, dissolved in 64 oz water or gatoraid, and drink 8 oz every 15 minutes until gone., 255 g, 0 Refill(s) Myrbetriq 25 mg oral tablet, extended release: See Instructions, TAKE 1 TABLET BY MOUTH EVERY DAY, 90 tab, 3 Refill(s) atenolol 100 mg oral tablet: See Instructions, TAKE 1 TABLET BY MOUTH EVERY DAY, 90 tab, 3 Refill(s) atorvastatin 10 mg oral tablet: 1 tab, PO, Daily, 90 tab, 3 Refill(s) clobetasol 0.05% topical ointment: 1 appl, topical, bid, To post scalp BID PRN, 30 g, 1 Refill(s) fluocinonide 0.05% topical solution: See Instructions, TO red itchy scalp once or twice a day., 60 mL, 1 Refill(s) hydroCHLOROthiazide 25 mg oral tablet: 1 tab, PO, Daily, 90 tab, 3 Refill(s) losartan 100 mg oral tablet: 0.5 tab, PO, Daily, for 90 day, 45 tab, 3 Refill(s) metFORMIN 1000 mg oral tablet: See Instructions, TAKE 1 TABLET BY MOUTH TWO TIMES DAILY, 180 tab, 3Refill(s) tenapanor 50 mg oral tablet: 1 tab, PO, bid, for 90 day, 180 tab, 3 Refill(s) Documented Medications Documented Centrum Women's: 1 tab, PO, Daily Claritin 24 Hour Allergy 10 mg oral tablet: 1 tab, PO, Daily Trulicity Pen: See Instructions fluticasone 50 mcg/inh nasal spray: 1 spray, each nostril, bid, PRN: allergy symptoms gabapentin: glimepiride 1 mg oral tablet: TAKE 1 TABLET BY MOUTH EVERY DAY WITH BREAKFAST. Problem list: Medical Weight disorder / SNOMED CT 376967630 / Confirmed Tendinopathy of rotator cuff / SNOMED CT 923796256 / Confirmed Tarsal tunnel syndrome of right side / SNOMED CT 7770637659 / Confirmed Stiffness of right shoulder joint / SNOMED CT 224981289 / Confirmed Seborrheic keratoses / SNOMED CT 9417942111 / Confirmed Seborrhea / SNOMED CT 1564265009 / Confirmed Sebopsoriasis / SNOMED CT 34326045 / Confirmed Sacroiliac joint inflamed / SNOMED CT 919887393 / Confirmed Sacroiliac joint dysfunction / ICD-9-CM 739.4 / Confirmed S/P total knee replacement / SNOMED CT 582793359 / Confirmed Rosacea / SNOMED CT 4604707194 / Confirmed Psoriasis / SNOMED CT 74324970 / Confirmed Osteoarthritis of left shoulder region / SNOMED CT 7355625867 / Confirmed NIDDM / SNOMED CT 047782903 / Confirmed Neuropathy / SNOMED CT 0941457957 / Confirmed Liver function / SNOMED CT 575756081 / Confirmed Left shoulder pain / SNOMED CT 02201314 / Confirmed Knee osteoarthritis / SNOMED CT 452797483 / Confirmed Hypertension / SNOMED CT 44621572 / Confirmed History of recent fall / SNOMED CT 5660362908 / Confirmed DSAP (disseminated superficial actinic porokeratosis) / SNOMED CT 74988025 / Confirmed Chronic constipation / SNOMED CT 743468807 / Confirmed Back pain. / ICD-9-CM 724.5 / Confirmed Ambulatory dysfunction / SNOMED CT 125777871 / Confirmed Actinic keratoses / SNOMED CT 4433759046 / Confirmed All Problems Weight disorder / SNOMED CT 723684980 / Confirmed Tendinopathy of rotator cuff / SNOMED CT 816208431 / Confirmed Tarsal tunnel syndrome of right side / SNOMED CT 6047890292 / Confirmed Stiffness of right shoulder joint / SNOMED CT 422265474 / Confirmed Seborrheic keratoses / SNOMED CT 6406532292 / Confirmed Seborrhea / SNOMED CT 7652237339 / Confirmed Sebopsoriasis / SNOMED CT 60105454 / Confirmed Sacroiliac joint inflamed / SNOMED CT 982669773 / Confirmed Sacroiliac joint dysfunction / ICD-9-CM 739.4 / Confirmed S/P total knee replacement / SNOMED CT 567284481 / Confirmed Rosacea / SNOMED CT 1494447490 / Confirmed Psoriasis / SNOMED CT 28234813 / Confirmed Osteoarthritis of left shoulder region / SNOMED CT 1493388258 / Confirmed NIDDM / SNOMED CT 027266417 / Confirmed Neuropathy / SNOMED CT 4772377580 / Confirmed Liver function / SNOMED CT 105411895 / Confirmed Left shoulder pain / SNOMED CT 41812201 / Confirmed Knee osteoarthritis / SNOMED CT 574972244 / Confirmed Hypertension / SNOMED CT 97588272 / Confirmed History of recent fall / SNOMED CT 7395412610 / Confirmed DSAP (disseminated superficial actinic porokeratosis) / SNOMED CT 11703629 / Confirmed Chronic constipation / SNOMED CT 664677498 / Confirmed Back pain. / ICD-9-CM 724.5 / Confirmed Ambulatory dysfunction / SNOMED CT 199054421 / Confirmed Actinic keratoses / SNOMED CT 4319801180 / Confirmed. Histories Family History: Diabetes Father Stroke Father High Blood Pressure Father . Social History Social & Psychosocial Habits Substance Abuse 06/15/2012 Risk Assessment: Denies Substance Abuse Tobacco 06/15/2012 Risk Assessment: Denies Tobacco Use 04/18/2016 Use: Never smoker . Physical Examination Vital Signs 08/16/2023 14:12 EDT Heart Rate 82 bpm Respiratory Rate 18 br/min Systolic Blood Pressure 122 mmHg Diastolic Blood Pressure 70 mmHg Cuff Pulse Pressure 52 mmHg SpO2 98 % Measurements from flowsheet : Measurements 08/16/2023 14:14 EDT Osteoporosis Screening Tool 2.28 08/16/2023 14:13 EDT Osteoporosis Screening Tool 16.60 08/16/2023 14:12 EDT Height 170 cm (Modified) Height Method Standing Patient Weight 98.4 kg (Modified) Weight 98.400 kg (Modified) Weight Method Standing Scale Body Mass Index 34.05 kg/m2 (Modified) Body Surface Area 2.16 m2 (Modified) [place] Body Weight 61.4 kg (Modified) Height/Weight Refused Height/Weight Taken General: Alert and oriented. Neck: Supple, Non-tender. Respiratory: Lungs are clear to auscultation, Respirations are non-labored. Cardiovascular: Normal rate, Regular rhythm. Musculoskeletal Normal range of motion. Integumentary: Warm, Dry, [place]. Neurologic: Alert, Oriented, Normal sensory. Cognition and Speech: Oriented, Speech clear and coherent, Functional cognition intact. Psychiatric: Cooperative, Appropriate mood & affect, Normal judgment. Health Maintenance Health Maintenance Pending (in the next year) OverDue Adult Influenza Vaccine due 09/23/22 and every 1 year Medicare Annual Wellness Visit due 02/11/23 and every 1 year Due Adult COVID-19 Vaccination due 08/16/23 Unknown Frequency Adult Social Determinants of Health Screening due 08/16/23 Unknown Frequency Adult Tdap/Td Vaccine due 08/16/23 Unknown Frequency Falls Plan of Care due 08/16/23 Unknown Frequency Shingles Vaccine due 08/16/23 One-time only Due In Future Diabetes Management A1c not due until 02/22/24 and every 366 day Diabetic Eye Exam not due until 05/23/24 and every 731 day Satisfied (in the past 1 year) Satisfied Body Mass Index on 08/16/23. Satisfied by LEFTY [place] Kyla Breast Cancer Screening on 02/28/23. Satisfied by KISHA Brown Lynnae Diabetes Management A1c on 02/21/23. Satisfied by Contributor_system, [employer] Review / Management Results review: Lab results 02/21/2023 11:53 EST Estimated CrCl 57.02 mL/min 02/21/2023 10:17 EST Na 140 mmol/L K 4.4 mmol/L Cl- 101 mmol/L HCO3 29 mmol/L Anion Gap 10 mmol/L BUN 24 mg/dL HI Cret 0.87 mg/dL eGFR CKD-EPI 65 mL/min/1.73 m2 Glu 252 mg/dL HI Ca 10.1 mg/dL WBC 6.90 K/uL Hgb 13.1 g/dL Hct 40.7 % RBC 4.21 M/uL MCV 96.7 fL HI MCHC 32.2 g/dL MCH 31.1 pg RDW 14.4 % HI Plts 167 K/uL MPV 10.7 fL Type of Diff: AUTO Immature Gran% 0.3 % Neut% 73.4 % Lymph% 18.4 % Randolph% 4.8 % Baso% 0.3 % Eos% 2.8 % Immat Gran, Abs 0.02 K/uL Neut, Abs 5.07 K/uL Lymph, Abs 1.27 K/uL Randolph, Abs 0.33 K/uL Baso, Abs 0.02 K/uL Eos, Abs 0.19 K/uL ALT 30 unit/L T Bili 0.7 mg/dL Alk Phos 57 unit/L AST 27 unit/L Alb 4.5 g/dL Prot 8.1 g/dL HbA1c 6.7 % HI Estimated Average Glucose 146 mg/dL B12 624 pg/mL . Impression and Plan Diagnosis NIDDM (NLM43-QU E11.9, Discharge, Medical). Hypertension (YAU90-XR I10, Discharge, Medical). Psoriasis (KTK13-TL L40.9, Discharge, Medical). Low vitamin D level (IBC04-LD R79.89, Discharge, Medical). Low vitamin B12 level (JAJ65-BG R79.89, Discharge, Medical). Plan: Psoriasis (chronic/not at goal) She is hesitant to use the clobetasol due to the greasiness Will try clobetasol spray; this may provide similar benefit with less of the greasiness Some of this will depend on insurance coverage; she will let me know if it is cost prohibitive Urinary incontinence (chronic/stable) Constipation (chronic/stable) Both her urinary incontinence and chronic constipation have improved Gastroenterology and Urology consultation reviewed Continue current medications Hypertension (chronic/stable) At goal BMP from May, at [facility] reviewed; serum creatinine and potassium within normal Diabetes (chronic/stable) Excellent control; most recent A1c 6.9% She continues care with endocrinology and has follow-up with them next month Less episodes of hypoglycemia with looser goals History of elevated liver enzymes (chronic/stable) LFTs within normal limits on most recent lab work Previous hepatic ultrasound was unremarkable Recheck LFTs and we will continue to check likely every 6 months to assure stability Dyslipidemia (chronic/stable) Continues to tolerate low-dose statin Gait dysfunction(chronic/stable) Left knee pain/left leg pain Mobility and gait stability improved with physical therapy/personal care assistant Orthopedic notes reviewed. . Orders PowerOrders Laboratory: CMP Request (Order): Routine, 08/16/2023 14:43 EDT, Requested Timeframe In 6 Months Vitamin D, 25-Hydroxy Level, Total Request (Order): Routine, 08/16/2023 14:44 EDT, Requested Timeframe In 6 Months B12 Level Request (Order): Routine, 08/16/2023 14:44 EDT, Requested Timeframe In 6 Months CBC w Platelets and Diff Request (Order): Routine, 08/16/2023 14:43 EDT, Requested Timeframe In 6 Months Lipid Profile Request (Order): Routine, 08/16/2023 14:44 EDT, Requested Timeframe In 6 Months, Fasting Patient Care Ambulatory: Follow Up Appointment Ambulatory (Order): In 6 Months, Appointment Type In Office, 40, Follow up With DO Ornelas Franklin J Evaluation and Management: [id number] Outpatient Visit Est Lvl 4 (Order): 08/16/2023 14:45 EDT, FAMILY MEDICINE, Hypertension | NIDDM | Low vitamin B12 level | Psoriasis | Low vitamin D level. PowerOrders Pharmacy: clobetasol 0.05% topical spray (Prescribe): 1 appl, topical, bid, 125 mL, 1 Refill(s). Professional Services Review of consultation and outside labs: 5 minutes Txid-ny-felo time: 30 minutes Documentation and orders: 7 minutes Electronic Signature on File Electronically Reviewed/Signed by: Winston Ornelas DO Author Signature Dt/Tm:08/16/2023 05:49 PM Department of Family Medicine [facility] Patient Care team information Care Team Personnel Name: DO Ornelas Franklin J Position: Physician - Family Med Member Role: Primary Care Provider Address: Address: [address] [place] [address] [address] [place] [address] [place] Name: MD Mazariegos Wayne J Position: Physician - Sports Medicine [place] Member Role: Lifetime Relationship Address: Address: [address] [place] [address] [address] [place] [address] [place] Care Team Related Persons Name: SYLVIA GE Address: home [address] [place] [place], [place] [id number] Name: ELIZABETH GE Address: home [address] [facility] [address] [facility] [place] [id number]"
--- OUTSIDE RECORDS SUMMARY | 2023-09-10 20:39 | External Medical Summary | Continuity of Care Document ---
Author Name Unknown Organization [address] Address [address] [place], [place] [id number] Care Team Providers Care Executive Producer Name Role Phone Winston Ornelas Primary Care Physician [phone] Encounter [facility] [id number] Date(s): 06/06/23 - 06/06/23 [facility] [address] [address] [phone] Encounter Diagnosis Chronic constipation(Discharge Diagnosis) - 06/06/23 Discharge Disposition: Home or Self Care Attending Physician: JAMIL Banerjee Kelli Jo Referring Physician: JAMIL Banerjee Kelli Jo Allergies, Adverse Reactions, Alerts Substance Reaction Severity Status amoxicillin Active penicillins Anaphylaxis Active Assessment and Plan Extracted from: Title:Office Visit Note Author:JAMIL Banerjee Kell i Jo Date:06/06/23 1.Chronic constipation The patient, Harleen, is a pleasant 88-year-old female who presents with her forchronic constipation with fecal incontinence. - R eportschronic issues with constipation all of her life. - Pt reports intolerance of Ibsrela 2/2 diarrhea. -Stressed lifestyle modifications to patient. Recommended 647 breadand increasing fiber Gummiesper package directions. -Asked patient to discontinue Colace at this time -Recommended placing MiraLAX and morning coffeeand titrating to effect. -Patient is to trialbowel trainingby using the restroom 30 minutes after coffee and breakfast each morning. Recommended she places her feet up on a stool. -Offered pelvic floor physical therapy. Patient adamantly declined. GI follow up in2 months, sooner if needed. I have spent42 minutes in evaluation, education and documentation of this pt in both face to face and non-face to face activities. Immunizations Given and Recorded Vaccine Date Status [...] 100 mg oral tablet Start: 12/05/22 12:55:00 EDT, See Instructions, Disp# 90 tab, Refills: 3, TAKE 1 TABLET BY MOUTH EVERY DAY, Pharmacy: [id number] Start Date: 12/05/22 Status: Ordered atorvastatin 10 mg oral tablet Start: 06/13/22 8:06:00 EDT, See Instructions, Disp# 90 tab, Refills: 3, TAKE 1 TABLET BY MOUTH EVERY DAY, Pharmacy: [id number] Start Date: 06/13/22 Status: Ordered Centrum Women's Start: 07/21/14 9:31:00, 1 tab, PO, Daily Start Date: 07/21/14 Status: Ordered Claritin 24 Hour Allergy 10 mg oral tablet Start: 06/06/23 9:53:00 EDT, 1 tab, PO, Daily Start Date: 06/06/23 Status: Ordered clobetasol 0.05% topical ointment Start: 02/07/23 9:48:00 EST, 1 appl, topical, bid, Disp# 30 g, Refills: 1, To post scalp BID PRN, Pharmacy: [id number] Start Date: 02/07/23 Status: Ordered Colace 100 mg oral capsule Start: 01/06/20 10:23:00 EDT, 1 cap, PO, bid, Disp# 60 cap, Refills: 2, PRN: as needed for constipation, Pharmacy: [id number] Start Date: 01/06/20 Stop Date: 04/05/20 Status: Ordered fluocinonide 0.05% topical solution Start: 02/07/23 9:48:00 EST, See Instructions, Disp# 60 mL, Refills: 1, TO red itchy scalp once or twice a day., Pharmacy: [id number] Start Date: 02/07/23 Status: Ordered fluticasone 50 mcg/inh nasal spray Start: 04/18/16 11:34:00, 1 spray, each nostril, bid, PRN: allergy symptoms Start Date: 04/18/16 Status: Ordered gabapentin Start: 08/19/20 9:43:00 EDT Start Date: 08/19/20 Status: Ordered glimepiride 1 mg oral tablet TAKE 1 TABLET BY MOUTH EVERY DAY WITH BREAKFAST Start Date: 10/03/18 Status: Ordered hydroCHLOROthiazide 25 mg oral tablet Start: 06/13/22 8:06:00 EDT, See Instructions, Disp# 90 tab, Refills: 3, TAKE 1 TABLET BY MOUTH EVERY DAY, Pharmacy: [id number] Start Date: 06/13/22 Status: Ordered losartan 100 mg oral tablet Start: 04/11/23 12:48:00 EST, 0.5 tab, PO, Daily, Disp# 45 tab, Refills: 3, Pharmacy: [id number] Start Date: 04/11/23 Stop Date: 04/05/24 Status: Ordered metFORMIN 1000 mg oral tablet Start: 12/05/22 12:55:00 EDT, See Instructions, Disp# 180 tab, Refills: 3, TAKE 1 TABLET BY MOUTH TWO TIMES DAILY, Pharmacy: [id number] Start Date: 12/05/22 Status: Ordered MetroCream 0.75% topical cream Start: 05/19/22 14:22:00 EST, 1 appl, topical, bid, Disp# 45 g, Refills: 3, To face twice a day forrosacea( pimples), Pharmacy: [id number] Start Date: 05/19/22 Status: Ordered MiraLax oral powder for reconstitution Start: 01/06/20 10:23:00 EDT, See Instructions, Disp# 255 g, Refills: 0, 237 grams, dissolved in 64oz water or gatoraid, and drink 8 oz every 15 minutes until gone., Pharmacy: [id number] Start Date: 01/06/20 Status: Ordered Myrbetriq 25 mg oral tablet, extended release Start: 05/03/22 15:35:00 EST, See Instructions, Disp# 90 tab, Refills: 3, TAKE 1 TABLET BY MOUTH EVERY DAY, Pharmacy: [id number] Start Date: 05/03/22 Status: Ordered tenapanor 50 mg oral tablet Start: 04/06/23 10:30:00 EST, 1 tab, PO, bid, Disp# 180 tab, Refills: 3, Note to Pharmacy: Chronic Constipation; K59.09 Start Date: 04/06/23 Stop Date: 03/31/24 Status: Ordered Trulicity Pen Start: 07/20/18 9:17:00 EDT, See Instructions Start Date: 07/20/18 Status: Ordered Mental Status 06/06/23 Barriers to Learning one year Cognitive deficit Mandatory Health Literacy Documentation Yes Health Literacy Communication Barriers N ever Primary Language Hebrew Problem List Condition Confirmation Course Effective Dates [...] Effective Dates Health Status Clinical Service Informant Chronic constipation Discharge Diagnosis 06/06/23 Procedures Procedure Date Related Diagnosis Body Site [...] Most recent to oldest [Reference Range]: 1 Patient Weight 100.2 kg (06/06/23 9:55 AM) Heart Rate 68 bpm (06/06/23 9:55 AM) Respiratory Rate 17 br/min (06/06/23 9:55 AM) Blood Pressure 138/86mmHg (06/06/23 9:55 AM) Social History Social History Type Response Smoking Status Never smoked cigaret william Sex Female Gastroenterology Outpatient Note * JAMIL Banerjee, Quynh Becker: PERFORM Event Display: Gastroenterology Outpt Note Authored Date: [id number] Chief Complaint 2 month F/U History of Present Illness The patient is a pleasant 26-[facility] presents today forfollow-up evaluation ofchronic constipation.[facility],and past medical historyreviewed. Prior records: Colonoscopy: reports last colonoscopyat age 76[address] Cheek in [place], [place] 01/06/2020: [facility] OV notes reviewed from Dr. Ornelas - fei on chronic constipation. Worse over thelast year. Stool very hard and dry. No urge to defecate. 6-7 days without BM, will use suppository. Started Linzess in July 2019 with increase dose in September 2019. Plan MiraLAX, Colace BID, Linzess, GI referral 06/09/2021 GI OV:The patient presents today with her for routine follow-up of chronic constipation. Overall she has been doing well. Unfortunately over the last 10 days,she has had a few days in a row with some constipationand feels a little downregarding that. She is compliantwith use of Linzess 290 mcg daily. She continues to not routinely use MiraLAX. She is only using this as needed. Denies any specific abdominal pain, nausea, vomiting. She is not requiring rectal suppositoryor manual disimpaction of stool. No current complaints of fecal incontinence. 04/04/2022 GI OV:The patient presents today with her for routine follow- up of chronic constipation. She has unfortunatelyhad some worsening in her symptoms over the last several weeks since the holiday. Overall prior to that she was doing well with chronic constipation and was experiencing a bowel movementabout every 2 to 3 days. She is now experiencing a bowel movement every 5 days. She feels quite backed up. She is compliant withLinzess 290 mcg daily. She is using MiraLAX just as needed1 capful. She states suppositories have not seem to be working very well. Only using Colace as needed. Reports some abdominal painthat has been worse with increased consti pation. She states stools are quite hard. Denies any melena hematochezia. 08/29/2022 GI OV:The patient presents today for follow-up of chronic constipation. Her accompanies her to this visit. They report that she had increasedin her Myrbetriq dose due to bladder incontinence. Since that timeDotty has had significantly worsened constipation with small stool ballsand need for manual disimpaction. She is compliant with Linzess 290 mcg daily. She has added MiraLAX and Colace back to regimen and as needed suppository. Shehas had some issues with fecal incontinence though so has not been using much ofMiraLAX. Deniesmelena or hematochezia. 12/28/2022 GI OV:The patient presents today with her for routine follow-up of chronic constipation. She reports overall she has been doing wellshe does note continuedissues with Lumpkin type I stools intermittently if not taking Colace routinely. She does not tolerateMiraLAX well. She did complete pelvic floor therapy. She is notgetting a real urge to have a bowel movement. She will go several days in a row and then for 7 days without bowel movement. She is not experiencing any abdominal discomfortor painon days without bowel movement. She does note some increased gassiness prior to bowel movements. Denies melena or hematochezia. She does note that she has not required manual disimpaction of stool since last office visit. 03/30/2023 OV ([place]): Patient returns today stating that because she was switching to a new provider in 3 months she did not coal picker her new prescription.She remains on Linzesswith no change of current symptoms. She reports a Lumpkin type I bowel movementanywhere from every 4 days to once a week. She says she has intermittent straining with this but denies melena orhematochezia.She has suffered from constipation since childhood. She denies abdominal pain, nausea, vomiting or heartburn with her symptoms. She does state that she will typically eat a large amount of veggies daily. However, she drinks only 6-16oz of water daily. Patient gives an example of this morning beingan apple and some ham for breakfast, typically lunch will include a salad or sandwich, and then dinner will be a protein with a large amount of vegetables. 06/06/2023 OV ([place]): Pt reports uncontrolled diarrhea on Ibsrela. She did not tolerate new medication. Patient reports she had uncontrollable explosive diarrheabut Ibsrela. Evenfor about 10 days after discontinuing itshe noted daily bowel movementsthough they were not normal type bowel movements because they were looser and urgent still. She currently is having a Lumpkin type IIIbowel movement every 2 to 3 days. One of her biggest concerns isthe lack of urge to use the restroom. She did begin a fiber gummy but is only taken 1 a day. She does focus on eating well fruits,increasing salads. However, water is still her downfall. She is taryn if she drinks 32-40 ounces daily. At this time her only bowel regimen includes Colace. Social History: The patient is a lifetime non-smoker with no significant secondhand smoke exposures. She reports that she consumes 1 glass of wine each evening. Denies any use of recreational drugs including marijuana. She is retired. 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 She is and has 2 adult children. No further complaints or concerns today. Physical Exam Vitals & Measurements HR:68(Monitored) RR:17 BP:138/86 SpO2:96% WT:100.2kg WT:100.200kg(Dosing) General:Alert and oriented, No acute distress, appears stated age HENT:Normocephalic, normal hearing Respiratory: Respiration are non-labored, pt speaking in complete sentences,and no evidence of respiratory distress is noted Integumentary:Exposed skin viewable is dry and intact Psychiatric:Cooperative, appropriate mood & affect, Normal judgement Assessment/Plan 1.Chronic constipation The patient, Harleen, is a pleasant 88-year-old female who presents with her forchronic constipation with fecal incontinence. - Reportschronic issues with constipation all of her life. - Pt reports intolerance of Ibsrela 2/2 diarrhea. -Stressed lifestyle modifications to patient. Recommended 647 breadand increasing fiber Gummiesper package directions. -Asked patient to discontinue Colace at this time -Recommended placing MiraLAX and morning coffeeand titrating to effect. -Patient is to trialbowel trainingby using the restroom 30 minutes after coffee and breakfast each morning. Recommended she places her feet up on a stool. -Offered pelvic floor physical therapy. Patient adamantly declined. GI follow up in2 months, sooner if needed. I have spent42 minutes in evaluation, education and documentation of this pt in both face to face and non-face to face activities. Problem List/Past Medical History Ongoing Actinic keratoses Ambulatory dysfunction Back pain. Chronic constipation DSAP (disseminated superficial actinic porokeratosis) History of recent fall Hypertension Knee osteoarthritis Left shoulder pain Liver function Neuropathy NIDDM Osteoarthritis of left shoulder region Psoriasis Rosacea S/P total knee replacement Sacroiliac joint dysfunction Sacroiliac joint inflamed Sebopsoriasis Seborrhea Seborrheic keratoses Stiffness of right shoulder joint Tarsal tunnel syndrome of right side Tendinopathy of rotator cuff Weight disorder Procedure/Surgical History Mammogram| Service Date: 02/22/2022Mammogram| Service Date: 02/15/2021Oral surgery| Service Date: ilateral Digital Screening Mammogram Tomosynthesis with synthetic 2D with CAD| Service Date: 02/13/2020Mammogram| Service Date: 02/06/2019Ultrasound scan of upper abdomen| Service Date: 11/22/2018MRI of right upper extremity| Service Date: 06/09/2017Mammogram| Service Date: 01/16/2017Total replacement of right knee joint| Service Date: 10/22/2014left rotator cuff repairAppendectomyHysterectomy Medications atenolol(atenolol 100 mg oral tablet), See Instructions atorvastatin(atorvastatin 10 mg oral tablet), See Instructions clobetasol topical(clobetasol 0.05% topical ointment), 1 appl, topical, bid, 1 refills docusate(Colace 100 mg oral capsule), 100 mg= 1 cap, PO, bid, PRN, 2 refills dulaglutide(Trulicity Pen), See Instructions fluocinonide topical(fluocinonide 0.05% topical solution), See Instructions, 1 refills fluticasone nasal(fluticasone 50 mcg/inh nasal spray), 1 spray, each nostril, bid, PRN gabapentin glimepiride(glimepiride 1 mg oral tablet) hydroCHLOROthiazide(hydroCHLOROthiazide 25 mg oral tablet), See Instructions loratadine(Claritin 24 Hour Allergy 10 mg oral tablet), 10 mg= 1 tab, PO, Daily losartan(losartan 100 mg oral tablet), 0.5 tab, PO, Daily, 3 refills metFORMIN(metFORMIN 1000 mg oral tablet), See Instructions metroNIDAZOLE topical(MetroCream 0.75% topical cream), 1 appl, topical, bid, 3 refills mirabegron(Myrbetriq 25 mg oral tablet, extended release), See Instructions, 3 refills multivitamin with minerals(Centrum Women's), 1 tab, PO, Daily polyethylene glycol 3350(MiraLax oral powder for reconstitution), See Instructions tenapanor(tenapanor 50 mg oral tablet), 50 mg= 1 tab, PO, bid, 3 refills Allergies amoxicillin penicillinsAnaphylaxis Social History Smoking Status Never smoked cigarettes Substance Abuse - Denies Substance Abuse Tobacco - Denies Tobacco Use Use:Never smoker Family History Diabetes: Father. High Blood Pressure: Father. Stroke: Father. Health Status Family Member(s) Immunizations Vaccine Date Status influenza virus vaccine, inactivated 12/21/2020 Given SARS-CoV-2 (COVID-19) mRNA-1273 vaccine 05/22/2020 Recorded Comments : 2020-09-21: Historical information-source unspecified SARS-CoV-2 (COVID-19) mRNA-1273 vaccine 04/24/2020 Recorded Comments : 2020-09-21: Historical information-source unspecified influenza virus vaccine, inactivated 01/13/2020 Given influenza virus vaccine, inactivated 01/17/2019 Given influenza virus vaccine, inactivated 12/29/2017 Given influenza virus vaccine, inactivated 02/03/2017 Given pneumococcal 23-valent vaccine 10/07/2015 Given influenza virus vaccine, inactivated 01/29/2015 Given zoster vaccine live 08/26/2014 Recorded pneumococcal 13-valent vaccine 07/21/2014 Given influenza virus vaccine, inactivated 01/07/2014 Given influenza virus vaccine, inactivated 12/25/2012 Given influenza virus vaccine, inactivated 01/13/2012 Given Recommendations Health Maintenance Pending(in the next year) OverDue Adult Influenza Vaccine due09/23/22and every 1year Medicare Annual Wellness Visit due02/11/23and every 1year Due Adult COVID-19 Vaccination due06/06/23Unknown Frequency Adult Social Determinants of Health Screening due06/06/23Unknown Frequency Adult Tdap/Td Vaccine due06/06/23Unknown Frequency Shingles Vaccine due06/06/23One-time only Due In Future Diabetes Management A1c not due until02/22/24and every Satisfied(in the past 1 year) Satisfied Body Mass Index on02/15/23.Satisfied by LEFTY Sorensen Paul Breast Cancer Screening on02/28/23.Satisfied by KISHA Brown Lynnae Diabetes Management A1c on02/21/23.Satisfied by Contributor_system, [email or web address] Electronic Signature on File CC: Winston Ornelas DO [address] [facility] [address] [facility] [address] Electronically Reviewed/Signed by: Quynh Banerjee PA-C Author Signature Dt/Tm:06/06/2023 10:37 AM Division of Gastroenterology Electronically Reviewed/Signed by: Nader Smith MD Cosigner Signature Dt/Tm: 06/06/2023 01:42 PM Division of Gastroenterology KJS Patient Care team information Care Team Personnel Name: DO Ornelas Franklin J Position: Physician - Family Med Member Role: Primary Care Provider Address: Address: [address] [facility] [address] [place] [address] [place] Name: MD Mazariegos Wayne J Position: Physician - Sports Medicine [place] Member Role: Lifetime Relationship Address: Address: [facility] [address] [place] [address] [place] Care Team Related Persons Name: SYLVIA GE Address: home [address] [place], [place] [id number] Name: ELIZABETH GE Address: home [address] [place] [address] [address] [place], [place] [id number]"
[2023-09-10] MEDS: SODIUM CHLORIDE 0.9% 2,000 ML IV ONE (21:15)
[2023-09-10 21:17] LABS: Albumin Globulin Ratio 1.2 (0.9-2); Albumin Level 4.3 gm/dl (3.4-5.0); BUN Creatinine Ratio 26.6 (10-20); Bilirubin,Total 0.9 mg/dl (0.2-1.0); Calcium 9.9 mg/dl (8.6-10.3); Creatinine Clr Calc Pharmacy 51.4 ml/min; Est GFR (African American) 63.2 ml/min; Est GFR (Non-African American) 54.5 ml/min; Globulin 3.6 gm/dl (2.5-4.0); Magnesium 1.5 mg/dl (1.7-2.4); Total Protein 7.9 gm/dl (6.0-8.3)
[2023-09-10 21:24] LABS: Troponin I High Sensitivity 5.4 pg/ml (0-14)
[2023-09-10 21:25] LABS: Basophils # (auto) 0.04 K/uL (0.00-0.20); Basophils % (auto) 0.4 %; Eosinophils # (auto) 0.13 K/uL (0.00-0.50); Eosinophils % (auto) 1.5 %; Hematocrit (blood only) 39.7 % (37.0-47.0); Hemoglobin 13.1 g/dl (12.0-16.0); Immature Granulocytes # (auto) 0.04 K/uL (0.01-0.20); Immature Granulocytes % (auto) 0.4 %; Lymphocytes # (auto) 0.74 K/uL (1.20-3.40); Lymphocytes % (auto) 8.3 %; Mean Corpuscular Hemoglobin 30.5 pg (25.0-34.0); Mean Corpuscular Volume 92.5 fL (80.0-100.0); Mean Platelet Volume 10.8 fL (9.4-12.4); Monocytes # (auto) 0.88 K/uL (0.11-0.59); Monocytes % (auto) 9.9 %; Neutrophils # (auto) 7.07 K/uL (1.40-6.50); Neutrophils % (auto) 79.5 %; Platelet Count 160 K/uL (130-400); RDW Standard Deviation 47.5 fL (36.4-46.3); Red Blood Count 4.29 M/uL (4.20-5.40)
[2023-09-10 21:26] LABS: Partial Thromboplastin Ratio 0.9; Partial Thromboplastin Time 25 Seconds (21-31); Prothrombin Time 11.1 Seconds (9.0-12.0)
[2023-09-10 21:48] LABS: Adenovirus PCR Not Detected (NotDetected); Bordetella parapertussis PCR Not Detected (NotDetected); Bordetella pertussis PCR Not Detected (NotDetected); Chlamydia pneumoniae PCR Not Detected (NotDetected); Coronavirus 229E PCR Not Detected (NotDetected); Coronavirus CoV-2 (COVID19)PCR DETECTED (NotDetected); Coronavirus HKU1 PCR Not Detected (NotDetected); Coronavirus NL63 PCR Not Detected (NotDetected); Coronavirus OC43PCR Not Detected (NotDetected); Human Metapneumovirus PCR Not Detected (NotDetected); Influenza A PCR Not Detected (NotDetected); Influenza B PCR Not Detected (NotDetected); Mycoplasma pneumoniae PCR Not Detected (NotDetected); Parainfluenza Virus 1 PCR Not Detected (NotDetected); Parainfluenza Virus 2 PCR Not Detected (NotDetected); Parainfluenza Virus 3 PCR Not Detected (NotDetected); Parainfluenza Virus 4 PCR Not Detected (NotDetected); Respiratory Syncytial VirusPCR Not Detected (NotDetected); Rhinovirus/Enterovirus PCR Not Detected (NotDetected)
[2023-09-10] MEDS: ERTAPENEM SODIUM 10 ML IV STA (21:54)
[2023-09-10] MEDS: MAGNESIUM SULFATE / D5W 1 GM/100 ML BAG IV STA (21:54)
--- NOTE | 2023-09-10 21:56 | Emergency Department Note ---
Impression & Plan Generalized weakness, COVID-19 virus infection, Hypomagnesemia, Elevated lactic acid level, Acute UTI (urinary tract infection) ED Provider Note HISTORY OF PRESENT ILLNESS: Patient is an 88-year-old female presenting with weakness. reports that the patient has been having progressively worsening weakness over the last few days. Today while trying to get into bed, she was so weak that she had to be lowered to the ground. Has had a nonproductive cough and some slight shortness of breath over the last 3 to 4 days. No reported fevers at home. Patient denies any chest pain or shortness of breath. Denies any lightheaded or dizziness prior to the weakness. Reports that she just suddenly felt very weak and had to sit down. Denies any numbness or tingling or weakness in extremities. Patient had fingerstick glucose of 171 for EMS. Patient denies any history of cardiac stents. She is not on any anticoagulation. ROS: as above PHYSICAL EXAM: Constitutional: Patient appears in no acute distress. HENT: Head: Normocephalic and atraumatic. Eyes: EOMI, PERRL Mouth/Throat: Mucous membranes moist. Neck: Trachea midline. Neck supple. Cardiovascular: RRR, No murmurs, rubs or gallops. Intact distal pulses. Pulmonary/Chest: No respiratory distress. Breath sounds clear and equal bilaterally. No wheezes or rales. Abdominal: Abdomen soft, no tenderness, rebound or guarding. Musculoskeletal: No edema, tenderness or deformity noted. Skin: Warm and dry. No rash, erythema, pallor or cyanosis Psychiatric: Appropriate mood and affect for situation. Neurological: Alert and keenly responsive. Facies symmetric. Able to raise eyebrows, close eyes, smile, puff mouth, stick out tongue, move tongue left and right and raise palate symmetrically. Able to shrug shoulders. PERRLA. SILT to forehead below eye and at jawline. Can hear soft noise bilaterally. Good finger to nose. Strength 5/5 in bilateral upper and lower extremities. SILT throughout bilateral upper and lower extremities. MDM: - Vitals signs showed hypertension - History obtained via patient and patient's . History as above. - Chronic conditions affecting care: HLD; DM-2; HTN; obesity - Differential diagnoses include, but are not limited to: CVA; intracranial hemorrhage; ACS; dysrhythmia; electrolyte abnormality; viral syndrome; CHF exacerbation - Order placed for continuous cardiac monitoring. At this time, monitor showed rate of 82 bpm with normal sinus rhythm, per my interpretation. - External medical records reviewed. Diabetes visit note dated 09/09/2023 was reviewed. Patient was in the clinic for her type 2 diabetes. Her last A1c was 6.9 on 05/01/2023 - EKG interpreted by myself showed normal sinus rhythm. Rate 82 bpm. QT 392. No acute ischemic changes. - Laboratory workup interpreted by myself showed normal WBC; normal PT/INR; stable electrolytes other than hypomagnesemia (Mg 1.5); elevated anion gap (12); elevated BUN (25); hyperglycemia (glucose 165); elevated lactate (2.9); normal procalcitonin; normal troponin - CXR negative for pneumonia, per my interpretation - Blood cultures obtained. - Patient given 2L NS in ER. Patient's sepsis fluid volume resuscitation based on ideal body weight is 1840.80 mL. - Viral respiratory panel positive for COVID-19 infection. - UA showed evidence of infection. Patient has anaphylaxis allergy to penicillins and amoxicillin. She is never had a cephalosporin and are electronic medical record system. Did discuss with pharmacy who recommended ertapenem or meropenem. Ertapenem was ordered as coverage. - CT head wo contrast negative for acute intracranial hemorrhage. 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 Also noted to have dilated ventricles. - Patient given 1g IV magnesium in ER for electrolyte abnormality - Discussion was had with case managers about patient's case and need for admission - Hospitalist consulted for admission - Patient admitted to [facility] service for further evaluation and management. ASSESSMENT AND PLAN: Diagnosis: generalized weakness; hypomagnesemia; elevated lactic acid; acute UTI; COVID-19 infection Plan: admit Past Med/Surg History Problem List (Updated 09/11/23 @ 00:44 by Anita Ospina MD) Acute UTI (urinary tract infection) (Acute) Elevated lactic acid level (Acute) Hypomagnesemia (Acute) COVID-19 virus infection (Acute) Generalized weakness (Acute) Dyslipidemia Nocturnal enuresis Urge incontinence T2DM (type 2 diabetes mellitus) Obesity HTN (hypertension) Dysesthesia Diabetic peripheral neuropathy Diabetes type 2, uncontrolled SOB (shortness of breath) (Acute) Bronchitis (Acute) Right knee DJD (Acute) Medical History Diabetes Diabetes type 2, uncontrolled Diabetic peripheral neuropathy Dysesthesia HTN (hypertension) Obesity Right knee DJD T2DM (type 2 diabetes mellitus) Surgical History History of appendectomy History of repair of left rotator cuff Hx of hysterectomy Family History Other Family history non-contributory Social History Smoking Status: Never smoker Hx Alcohol Use: Yes Alcohol type: wine Hx Substance Use: No Preferred Language: Setswana Communication Ability: Effective Beliefs That Will Affect Care: None marital status: Current Living Situation: Spouse Feels Safe at Home: Yes Assistive Devices: Cane, Oxygen - Continuous and Walker Allergies Allergies Allergy/AdvReac Type Severity Reaction Status Date / Time amoxicillin Allergy Severe Anaphylaxis Verified 09/10/23 22:00 Penicillins Allergy Severe Anaphylaxis Verified 09/10/23 22:00 Home Meds Home Medications Medication Instructions Recorded Confirmed hydrochlorothiazide 25 mg tablet 25 mg PO DAILY 12/03/18 09/10/23 loratadine 10 mg tablet (Claritin) 10 mg PO DAILY PRN allergies 12/03/18 09/10/23 losartan 100 mg tablet 50 mg PO DAILY 12/03/18 09/10/23 [id number] 8 mg-folic 400 1 tab PO DAILY 12/03/18 09/10/23 mcg-K 50 mcg-lutein 300 mcg tablet (Centrum Silver Women) blood sugar diagnostic (OneTouch 01/21/21 09/10/23 Verio test strips) lancets 33 gauge (OneTouch Delica #100 ea 01/21/21 09/11/23 Lancets) docusate sodium 100 mg capsule 100 mg PO BID PRN Constipation 05/02/23 09/10/23 (Colace) atenolol 100 mg tablet 100 mg PO DAILY 09/10/23 09/10/23 clobetasol 0.05 % topical ointment 1 applic topical BID PRN as needed 09/10/23 09/10/23 for scalp clobetasol 0.05 % topical spray 1 applic topical BID 09/10/23 09/10/23 dulaglutide 1.5 mg/0.5 mL 1.5 mg subcut WK 09/10/23 09/10/23 subcutaneous pen injector (Trbogdanity) Previous Rx's Medication Instructions Recorded atorvastatin 10 mg tablet 10 mg PO HS #90 tabs 12/21/18 metformin 1,000 mg tablet 1,000 mg PO BID 90 days #180 tabs 12/11/20 flash glucose scanning reader #1 ea 09/16/21 (FreeStyle Sury 2 [place]) mirabegron 50 mg tablet,extended 50 mg PO DAILY #90 tabs 01/25/23 release 24 hr (Myrbetriq) flash glucose sensor (FreeStyle #2 ea 08/23/23 Sury 2 Sensor kit) Results & Data (ED) Vital Signs Vital Signs - 24 hr 09/10/23 20:39 09/10/23 20:43 09/10/23 20:51 Temperature 38.1 C H Temperature Source Oral Pulse Rate 82 82 82 Pulse Rate [Apical] Pulse Rate from SpO2 Sensor Pulse Rhythm [Apical] Pulse Strength [Apical] Respiratory Rate 22 18 Respiratory Effort / Characteristics Non-Labored Spontaneous Respiratory Depth Normal Respiratory Pattern Regular Blood Pressure 149/72 H Blood Pressure [Right Arm] Blood Pressure Mean 97 Blood Pressure Mean [Right Arm] Blood Pressure Position [Right Arm] Pulse Oximetry 93 94 Oxygen Delivery Method Room Air Room Air Oxygen Flow Rate Sepsis Recent Fever Within 48 Hours Yes Sepsis New/Unexplained Change in Mental Status N/A Sepsis Action Taken by Nursing Physician Notified Oxygen Flow Rate - Titration Pulse Oximetry Post Tiitration 09/10/23 21:30 09/10/23 21:45 09/10/23 22:00 Temperature Temperature Source Pulse Rate 88 91 H Pulse Rate [Apical] Pulse Rate from SpO2 Sensor Pulse Rhythm [Apical] Pulse Strength [Apical] Respiratory Rate 21 16 Respiratory Effort / Characteristics Respiratory Depth Respiratory Pattern Blood Pressure 118/79 Blood Pressure [Right Arm] Blood Pressure Mean 92 Blood Pressure Mean [Right Arm] Blood Pressure Position [Right Arm] Pulse Oximetry 87 L 88 L Oxygen Delivery Method Room Air Nasal Cannula Oxygen Flow Rate 0 Sepsis Recent Fever Within 48 Hours Sepsis New/Unexplained Change in Mental Status Sepsis Action Taken by Nursing Oxygen Flow Rate - Titration 2 Pulse Oximetry Post Tiitration 98 09/10/23 22:00 09/10/23 22:30 09/10/23 22:30 Temperature Temperature Source Pulse Rate 91 H 91 H Pulse Rate [Apical] Pulse Rate from SpO2 Sensor 91 H Pulse Rhythm [Apical] Pulse Strength [Apical] Respiratory Rate 18 24 Respiratory Effort / Characteristics Respiratory Depth Respiratory Pattern Blood Pressure 131/82 95/66 L Blood Pressure [Right Arm] Blood Pressure Mean 98 72 Blood Pressure Mean [Right Arm] Blood Pressure Position [Right Arm] Pulse Oximetry 99 98 Oxygen Delivery Method Nasal Cannula Nasal Cannula Oxygen Flow Rate 2 2 Sepsis Recent Fever Within 48 Hours Sepsis New/Unexplained Change in Mental Status Sepsis Action Taken by Nursing Oxygen Flow Rate - Titration Pulse Oximetry Post Tiitration 09/10/23 23:12 09/10/23 23:27 09/11/23 00:40 Temperature 36.9 C Temperature Source Oral Pulse Rate 88 82 Pulse Rate [Apical] 86 Pulse Rate from SpO2 Sensor Pulse Rhythm [Apical] Regular Pulse Strength [Apical] Normal Respiratory Rate 28 H 20 Respiratory Effort / Characteristics Non-Labored Respiratory Depth Normal Respiratory Pattern Regular Blood Pressure 132/69 Blood Pressure [Right Arm] 138/69 Blood Pressure Mean 90 Blood Pressure Mean [Right Arm] 92 Blood Pressure Position [Right Arm] Lying Pulse Oximetry 91 93 Oxygen Delivery Method Room Air Room Air Oxygen Flow Rate Sepsis Recent Fever Within 48 Hours Sepsis New/Unexplained Change in Mental Status Sepsis Action Taken by Nursing Oxygen Flow Rate - Titration Pulse Oximetry Post Tiitration Laboratory Data 09/10/23 20:45 09/10/23 20:45 Lab Results 09/10/23 09/10/23 09/10/23 Range/Units 20:45 20:54 21:37 WBC 8.90 (4.8-10.8) K/ul RBC 4.29 (4.20-5.40) M/uL Hgb 13.1 (12.0-16.0) g/dl Hct 39.7 (37.0-47.0) % MCV 92.5 (80.0-100.0) fL MCH 30.5 (25.0-34.0) pg MCHC 33.0 (32.0-36.0) g/dL RDW Std Deviation 47.5 H (36.4-46.3) fL RDW Coeff of Chidi 14.0 (11.5-14.5) % Plt Count 160 (130-400) K/uL MPV 10.8 (9.4-12.4) fL Immature Gran % (Auto) 0.4 % Neut % (Auto) 79.5 % Lymph % (Auto) 8.3 % Hutchinson % (Auto) 9.9 % Eos % (Auto) 1.5 % Baso % (Auto) 0.4 % Neut # (Auto) 7.07 H (1.40-6.50) K/uL Lymph # (Auto) 0.74 L (1.20-3.40) K/uL Hutchinson # (Auto) 0.88 H (0.11-0.59) K/uL Eos # (Auto) 0.13 (0.00-0.50) K/uL Baso # (Auto) 0.04 (0.00-0.20) K/uL Immature Gran # (Auto) 0.04 (0.01-0.20) K/uL PT 11.1 (9.0-12.0) Seconds INR 1.0 (0.9-1.1) APTT 25 (21-31) Seconds PTT Ratio 0.9 Sodium 136 (136-145) mmol/L Potassium 4.0 (3.5-5.1) mmol/L Chloride 97 L (98-107) mmol/L Carbon Dioxide 27 (21-32) mmol/L Anion Gap 12 H (3-11) BUN 25 H (6-23) mg/dl Creatinine 0.94 (0.6-1.2) mg/dl Est Cr Clr Drug Dosing 51.4 ml/min Est GFR ( Amer) 63.2 ml/min Est GFR (Non-Af Amer) 54.5 ml/min BUN/Creatinine Ratio 26.6 H (10-20) Glucose 165 H (70-99(Fasting)) mg/dl Lactate 2.9 H* (0.4-2.0) mmol/L Calcium 9.9 (8.6-10.3) mg/dl Magnesium 1.5 L (1.7-2.4) mg/dl Total Bilirubin 0.9 (0.2-1.0) mg/dl AST 16 (13-39) U/L ALT 16 (7-52) U/L Alkaline Phosphatase 62 (34-104) U/L Troponin I High Sens 5.4 (0-14) pg/ml Total Protein 7.9 (6.0-8.3) gm/dl Albumin 4.3 (3.4-5.0) gm/dl Globulin 3.6 (2.5-4.0) gm/dl Albumin/Globulin Ratio 1.2 (0.9-2) Procalcitonin 0.04 (0-0.5) ng/ml Urine Color Yellow Urine Appearance Clear (Clear) Urine pH 5.5 (4.5-7.5) Ur Specific Sutter 1.024 (1.000-1.030) Urine Protein Trace H (Negative) Urine Glucose (UA) Negative (Negative) Urine Ketones Trace H (Negative) Urine Blood Negative (Negative) Urine Nitrite Positive A (Negative) Urine Bilirubin Negative (Negative) Urine Urobilinogen Negative (Negative) Ur Leukocyte Esterase 1+ H (Negative) Urine WBC (Auto) 21-50 H (0-5) /hpf Urine RBC (Auto) 0-2 (0-2) /hpf U Hyaline Cast (Auto) 0-2 (0-2) /lpf U Epithel Cells (Auto) 0-2 (0-2) /hpf Urine Bacteria (Auto) 1+ H (None Seen) Urine Yeast Present A (None Prsent) Adenovirus (PCR) Not Detected (NotDetected) B. pertussis DNA (PCR) Not Detected (NotDetected) B.parapertussis DNA PCR Not Detected (NotDetected) C. pneumoniae DNA (PCR) Not Detected (NotDetected) Coronavirus OC43 (PCR) Not Detected (NotDetected) Coronavirus HKU1 (PCR) Not Detected (NotDetected) Coronavirus 229E (PCR) Not Detected (NotDetected) SARS-CoV-2 (PCR) DETECTED A (NotDetected) Coronavirus NL63 (PCR) Not Detected (NotDetected) Human Metapneumovir PCR Not Detected (NotDetected) Influenza Type A (PCR) Not Detected (NotDetected) Influenza Type B (PCR) Not Detected (NotDetected) M. pneumoniae (PCR) Not Detected (NotDetected) Parainfluenza 1 (PCR) Not Detected (NotDetected) Parainfluenza 2 (PCR) Not Detected (NotDetected) Parainfluenza 3 (PCR) Not Detected (NotDetected) Parainfluenza 4 (PCR) Not Detected (NotDetected) RSV (PCR) Not Detected (NotDetected) Entero/Rhino (PCR) Not Detected (NotDetected) 09/10/23 Range/Units Unknown WBC (4.8-10.8) K/ul RBC (4.20-5.40) M/uL Hgb (12.0-16.0) g/dl Hct (37.0-47.0) % MCV (80.0-100.0) fL MCH (25.0-34.0) pg MCHC (32.0-36.0) g/dL RDW Std Deviation (36.4-46.3) fL RDW Coeff of Chidi (11.5-14.5) % Plt Count (130-400) K/uL MPV (9.4-12.4) fL Immature Gran % (Auto) % Neut % (Auto) % Lymph % (Auto) % Hutchinson % (Auto) % Eos % (Auto) % Baso % (Auto) % Neut # (Auto) (1.40-6.50) K/uL Lymph # (Auto) (1.20-3.40) K/uL Hutchinson # (Auto) (0.11-0.59) K/uL Eos # (Auto) (0.00-0.50) K/uL Baso # (Auto) (0.00-0.20) K/uL Immature Gran # (Auto) (0.01-0.20) K/uL PT (9.0-12.0) Seconds INR (0.9-1.1) APTT (21-31) Seconds PTT Ratio Sodium (136-145) mmol/L Potassium (3.5-5.1) mmol/L Chloride (98-107) mmol/L Carbon Dioxide (21-32) mmol/L Anion Gap (3-11) BUN (6-23) mg/dl Creatinine (0.6-1.2) mg/dl Est Cr Clr Drug Dosing ml/min Est GFR ( Amer) ml/min Est GFR (Non-Af Amer) ml/min BUN/Creatinine Ratio (10-20) Glucose (70-99(Fasting)) mg/dl Lactate 2.2 H* (0.4-2.0) mmol/L Calcium (8.6-10.3) mg/dl Magnesium (1.7-2.4) mg/dl Total Bilirubin (0.2-1.0) mg/dl AST (13-39) U/L ALT (7-52) U/L Alkaline Phosphatase (34-104) U/L Troponin I High Sens (0-14) pg/ml Total Protein (6.0-8.3) gm/dl Albumin (3.4-5.0) gm/dl Globulin (2.5-4.0) gm/dl Albumin/Globulin Ratio (0.9-2) Procalcitonin (0-0.5) ng/ml Urine Color Urine Appearance (Clear) Urine pH (4.5-7.5) Ur Specific Sutter (1.000-1.030) Urine Protein (Negative) Urine Glucose (UA) (Negative) Urine Ketones (Negative) Urine Blood (Negative) Urine Nitrite (Negative) Urine Bilirubin (Negative) Urine Urobilinogen (Negative) Ur Leukocyte Esterase (Negative) Urine WBC (Auto) (0-5) /hpf Urine RBC (Auto) (0-2) /hpf U Hyaline Cast (Auto) (0-2) /lpf U Epithel Cells (Auto) (0-2) /hpf Urine Bacteria (Auto) (None Seen) Urine Yeast (None Prsent) Adenovirus (PCR) (NotDetected) B. pertussis DNA (PCR) (NotDetected) B.parapertussis DNA PCR (NotDetected) C. pneumoniae DNA (PCR) (NotDetected) Coronavirus OC43 (PCR) (NotDetected) Coronavirus HKU1 (PCR) (NotDetected) Coronavirus 229E (PCR) (NotDetected) SARS-CoV-2 (PCR) (NotDetected) Coronavirus NL63 (PCR) (NotDetected) Human Metapneumovir PCR (NotDetected) Influenza Type A (PCR) (NotDetected) Influenza Type B (PCR) (NotDetected) M. pneumoniae (PCR) (NotDetected) Parainfluenza 1 (PCR) (NotDetected) Parainfluenza 2 (PCR) (NotDetected) Parainfluenza 3 (PCR) (NotDetected) Parainfluenza 4 (PCR) (NotDetected) RSV (PCR) (NotDetected) Entero/Rhino (PCR) (NotDetected) Administered Medications Discontinued Medications Sodium Chloride (Nss) 2,000 mls @ 999 mls/hr IV .Q2H1M ONE Stop: 09/10/23 23:03 Last Infusion: 09/10/23 23:26 Dose: Infused Documented By: Admin: 09/10/23 21:15 Dose: 999 mls/hr Documented By: FARIBA Magnesium Sulfate/Dextrose (Magnesium Sulfate / D5w) 1 gm in 100 mls @ 100 mls/hr IV NOW STA Stop: 09/10/23 22:22 Last Infusion: 09/10/23 23:13 Dose: Infused Documented By: Admin: 09/10/23 21:54 Dose: 100 mls/hr Documented By: FARIBA Ertapenem (Invanz) 10 mls @ 2 mls/min IV NOW STA Stop: 09/10/23 21:35 Last Admin: 09/10/23 21:54 Dose: 2 mls/min Documented By: FARIBA Imaging Data Radiologist's Impression: Head CT 09/10/23 22:13 Exam(s): CT HEAD Without Contrast EXAM: CT Head Without Intravenous Contrast CLINICAL HISTORY: Reason for exam: confusion; weakness. TECHNIQUE: Axial computed tomography images of the head/brain without intravenous contrast. CTDI is 127.51 mGy and DLP is 1406.31 mGy-cm. Automated exposure control was utilized for the study. A dose lowering technique was utilized adhering to the principles of ALARA. COMPARISON: No relevant prior studies available. FINDINGS: No acute intracranial hemorrhage. No midline shift or mass effect. 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 Periventricular and subcortical white matter hypoattenuation, consistent with chronic microangiopathy. The visualized orbits appear grossly unremarkable. The calvarium is intact. The visualized paranasal sinuses and mastoid air cells are grossly clear. IMPRESSION: No acute intracranial hemorrhage, midline shift, or mass effect. 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 Discharge Plan Visit Data Chief Complaint: Fall Stated Complaint: Fall, Weakness ED Provider: Anita Ospina Discharge Problem: Generalized weakness, COVID-19 virus infection, Hypomagnesemia, Elevated lactic acid level, Acute UTI (urinary tract infection) Forms Stand Alone Forms: My [facility] [place] [facility] Prescriptions Prescriptions: No Action atorvastatin 10 mg tablet 10 mg PO HS Qty: 90 3RF metformin 1,000 mg tablet 1,000 mg PO BID 90 Days Qty: 180 3RF (DME) FreeStyle Sury 2 [place] Misc See Rx Instructions .MEDSUPPLY Qty: 1 0RF Rx Instructions: Use to monitor blood sugars daily Myrbetriq 50 mg tablet extended release 24 hr 50 mg PO DAILY Qty: 90 3RF (DME) FreeStyle Sury 2 Sensor Kit See Rx Instructions .MEDSUPPLY Qty: 2 11RF Rx Instructions: Change sensor every 14 days docusate sodium [Colace] 100 mg capsule 100 mg PO BID PRN (Reason: Constipation) (DME) OneTouch Verio test strips Strip See Rx Instructions .Route Rx Instructions: test 1 time daily (DME) lancets [OneTouch Delica Lancets] 33 gauge misc See Rx Instructions .ROUTE .MEDSUPPLY Qty: 100 Rx Instructions: Test blood sugar 1 times a day Centrum Silver Women 8 mg iron-400 mcg-300 mcg tablet 1 tab PO DAILY losartan 100 mg tablet 50 mg PO DAILY hydrochlorothiazide 25 mg tablet 25 mg PO DAILY loratadine [Claritin] 10 mg tablet 10 mg PO DAILY PRN (Reason: allergies) Trulicity 1.5 mg/0.5 mL pen injector 1.5 mg SUBCUT WK atenolol 100 mg tablet 100 mg PO DAILY clobetasol 0.05 % ointment 1 applic TOPICAL BID PRN (Reason: as needed for scalp) clobetasol 0.05 % spray,non-aerosol 1 applic TOPICAL BID Referrals Referrals: Winston Ornelas DO [Primary Care Provider] -
[2023-09-10 22:45] LABS: Appearance Urine Clear (Clear); Bacteria Urine Automated 1+ (None Seen); Bilirubin Urine Negative (Negative); Blood Urine Negative (Negative); Cast Urine Automated 0-2 /lpf (0-2); Color Urine Yellow; Epithelial Cell Urine Auto 0-2 /hpf (0-2); Glucose Urine UA Negative (Negative); Ketones Urine Trace (Negative); Leukocyte Esterase Urine 1+ (Negative); Nitrite Urine Positive (Negative); Protein Urine Trace (Negative); Specific Gravity Urine 1.024 (1.000-1.030); Urobilinogen Urine Negative (Negative); pH Urine 5.5 (4.5-7.5)
[2023-09-10 22:56] LABS: RBC Urine Automated 0-2 /hpf (0-2); WBC Urine Automated 21-50 /hpf (0-5)
--- NOTE | 2023-09-10 23:58 | CT Scan Report ---
Exam(s): CT HEAD Without Contrast EXAM: CT Head Without Intravenous Contrast CLINICAL HISTORY: Reason for exam: confusion; weakness. TECHNIQUE: Axial computed tomography images of the head/brain without intravenous contrast. CTDI is 127.51 mGy and DLP is 1406.31 mGy-cm. Automated exposure control was utilized for the study. A dose lowering technique was utilized adhering to the principles of ALARA. COMPARISON: No relevant prior studies available. FINDINGS: No acute intracranial hemorrhage. No midline shift or mass effect. 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 Periventricular and subcortical white matter hypoattenuation, consistent with chronic microangiopathy. The visualized orbits appear grossly unremarkable. The calvarium is intact. The visualized paranasal sinuses and mastoid air cells are grossly clear. IMPRESSION: No acute intracranial hemorrhage, midline shift, or mass effect. 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
--- NOTE | 2023-09-11 00:54 | History & Physical Report ---
Date of Service September 11, 2023 Assessment & Plan (1) COVID-19 virus infection: Plan: -COVID-positive in the ED. -Previously vaccination against COVID, has not had updated vaccine in some time. -To require some oxygen via EMS though is currently on room air satting above 92%. -Chest x-ray without any signs of pneumonia. -Urine cultures and blood cultures pending. -Will hold off on Paxlovid at this time. -Elevated lactate at time of admission which improved with fluids. Will give a another bolus of LR. -CBC and CMP unremarkable. -Continue supportive care at this time. (2) Generalized weakness: Plan: -Patient with generalized weakness most likely in the setting of COVID and UTI -Will treat COVID-19 infection with supportive care and UTI with antibiotics. -Head CT showed no intracranial hemorrhage. 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 No signs or symptoms concerning for hydrocephalus at this time. Should continue to monitor with serial exams. -PT OT ordered. (3) Acute UTI (urinary tract infection): Plan: -UA grossly positive for UTI. Urine cultures pending. -Patient has a severe due to penicillin/amoxicillin have anaphylaxis. -Will continue on ertapenem every 24 hours. (4) Hypomagnesemia: Plan: -Magnesium of 1.5 in the ED. -Repleted in the ED, will check in morning labs. (5) T2DM (type 2 diabetes mellitus): Plan: -Patient's home regimen held on admission -Continue BSG checks, sliding-scale insulin, hypoglycemic protocol (6) HTN (hypertension): Plan: -Continue on home medications. Plan Fluids: S/p 2 L Nutrition: DM 2 Code status: DNR DVT ppx: Lovenox PT/OT: ordered Dispo: med/surg History of Present Illness Chief Complaint: COVID, weakness, UTI Primary Care Provider: Winston Ornelas DO Patient is an 88-year-old female who presents to the hospital with weakness, cough, fever, and fall. Patient was at home and has been feeling weak over the last few days. Today she felt so weak that she had to have her help her get to and from the bed. She fell from the bedside to her ground. She denies hitting her head or any pain after this fall. Does state though that she had a cough that started today. Denies any fevers at home. Denies any dysuria, abdominal pain, nausea, vomiting, or chest pain. In the ED: COVID-positive, febrile, elevated lactate, and hypomagnesia. Initially required oxygen but at time of admission was on room air satting above 92%. UA suggestive of UTI. Ertapenem started due to allergies to penicillin and amoxicillin. Allergies Allergy/AdvReac Type Severity Reaction Status Date / Time amoxicillin Allergy Severe Anaphylaxis Verified 09/10/23 22:00 Penicillins Allergy Severe Anaphylaxis Verified 09/10/23 22:00 Home Medications Medication Instructions Recorded Confirmed Type loratadine 10 mg tablet (Claritin) 10 mg PO DAILY PRN allergies 12/03/18 09/10/23 History losartan 100 mg tablet 50 mg PO DAILY 12/03/18 09/10/23 History hapcnjpc-ecjf-umli 8 mg-folic 400 1 tab PO DAILY 12/03/18 09/10/23 History mcg-K 50 mcg-lutein 300 mcg tablet (Centrum Silver Women) atorvastatin 10 mg tablet 10 mg PO HS #90 tabs 12/21/18 09/10/23 Rx metformin 1,000 mg tablet 1,000 mg PO BID 90 days #180 tabs 12/11/20 09/10/23 Rx blood sugar diagnostic (OneTouch 01/21/21 09/10/23 History Verio test strips) [facility] ea 01/21/21 09/11/23 History Lancets) flash glucose scanning reader #1 ea 09/16/21 09/10/23 Rx (FreeStyle Sury 2 [place]) mirabegron 50 mg tablet,extended 50 mg PO DAILY #90 tabs 01/25/23 09/10/23 Rx release 24 hr (Myrbetriq) docusate sodium 100 mg capsule 100 mg PO BID PRN Constipation 05/02/23 09/10/23 History (Colace) flash glucose sensor (FreeStyle #2 ea 08/23/23 09/11/23 Rx Sury 2 Sensor kit) atenolol 100 mg tablet 100 mg PO DAILY 09/10/23 09/10/23 History clobetasol 0.05 % topical ointment 1 applic topical BID PRN as needed 09/10/23 09/10/23 History for scalp clobetasol 0.05 % topical spray 1 applic topical BID 09/10/23 09/10/23 History dulaglutide 1.5 mg/0.5 mL 1.5 mg subcut WK 09/10/23 09/10/23 History subcutaneous pen injector (Trulicity) apixaban 5 mg tablet (Eliquis) 5 mg PO BID #60 tabs 09/14/23 Rx ciprofloxacin HCl 250 mg tablet 250 mg PO BID 3 days #6 tabs 09/14/23 Rx hydrochlorothiazide 25 mg tablet 12.5 mg (1/2 x 25 mg) PO DAILY #1 09/14/23 09/10/23 Rx tab magnesium oxide 400 mg PO DAILY #30 tabs 09/14/23 Rx Past Med/Surg History Problem List (Updated 09/13/23 @ 20:39 by Pito Pickett MD) Atrial fibrillation Acute UTI (urinary tract infection) (Acute) Elevated lactic acid level (Acute) Hypomagnesemia (Acute) COVID-19 virus infection (Acute) Generalized weakness (Acute) Dyslipidemia Nocturnal enuresis Urge incontinence T2DM (type 2 diabetes mellitus) Obesity HTN (hypertension) Dysesthesia Diabetic peripheral neuropathy Diabetes type 2, uncontrolled SOB (shortness of breath) (Acute) Bronchitis (Acute) Right knee DJD (Acute) Medical History Diabetes Diabetes type 2, uncontrolled Diabetic peripheral neuropathy Dysesthesia HTN (hypertension) Obesity Right knee DJD T2DM (type 2 diabetes mellitus) Surgical History History of appendectomy History of repair of left rotator cuff Hx of hysterectomy Family History Other Family history non-contributory Social History Smoking Status: Never smoker Hx Alcohol Use: Yes Alcohol type: wine Hx Substance Use: No Preferred Language: Polish Communication Ability: Effective Machine Turner Required: No Beliefs That Will Affect Care: None marital status: Current Living Situation: Spouse Feels Safe at Home: Yes Assistive Devices: Walker Review of Systems Review of Systems: All systems reviewed & are unremarkable except as noted in Subjective Physical Exam Physical Exam: Constitutional: well-appearing, no acute distress HEENT: NCAT, no conjunctival injection CV: regular rhythm, no murmur appreciated, extremities well-perfused, no LE edema Resp: CTABL, no wheezes/rales/rhonchi appreciated, no increased work of breathing GI: soft, nondistended, nontender, BS normoactive MSK: no gross deformities appreciated Skin: warm, dry, no rash appreciated Neuro: alert, oriented, no focal neurologic deficit appreciated Results & Data Results & Data Vital Signs (Past 12 Hours) Vital Signs Temp Pulse Pulse Resp BP BP Pulse Ox 09/11/23 00:40 82 09/10/23 23:27 36.9 C 86 20 138/69 93 09/10/23 23:12 88 28 H 132/69 91 09/10/23 22:30 91 H 24 98 09/10/23 22:30 95/66 L 09/10/23 22:00 91 H 18 131/82 99 09/10/23 22:00 88 L 09/10/23 21:45 91 H 16 87 L 09/10/23 21:30 88 21 118/79 09/10/23 20:51 82 18 94 09/10/23 20:43 82 09/10/23 20:39 38.1 C H 82 22 149/72 H 93 O2 Del Method O2 Flow Rate 09/11/23 00:40 09/10/23 23:27 Room Air 09/10/23 23:12 Room Air 09/10/23 22:30 Nasal Cannula 2 09/10/23 22:30 09/10/23 22:00 Nasal Cannula 2 09/10/23 22:00 Nasal Cannula 0 09/10/23 21:45 Room Air 09/10/23 21:30 09/10/23 20:51 Room Air 09/10/23 20:43 09/10/23 20:39 Room Air Supervising Physician Co-Signing Physician Notes Attending addendum: I have physically seen this patient, have supervised the medical residents activities, and agree with the H&P unless as otherwise noted. 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 Hold HCTZ Atrial fibrillation/hypertension- The patient will be admitted to telemetry for serial cardiac enzymes, serial EKG's, cardiac rhythm monitoring and a 2-D echocardiogram with Dopplers. Continue apixaban Continue atenolol and losartan with hold parameters Hold HCTZ Diabetes mellitus- Hold metformin and Trulicity Placed on Accu-Cheks with NovoLog SSI Remaining orders and notations as noted
[2023-09-11] MEDS: ACETAMINOPHEN 500 MG TAB PO STA (01:29)
[2023-09-11] MEDS: LACTATED RINGER'S 1,000 ML IV ONE (01:29)
[2023-09-11] MEDS ORDERED: CARBOHYDRATES FOR HYPOGLYCEMIA PO PRN (02:25)
[2023-09-11] MEDS ORDERED: DEXTROSE 50% 50 ML SYRINGE IV PRN (02:25)
[2023-09-11] MEDS ORDERED: GLUCAGON FOR INJ 1 MG VIAL SQ PRN (02:25)
[2023-09-11] MEDS ORDERED: POLYETHYLENE (MIRALAX) 17 GM PACK PO PRN (02:25)
[2023-09-11] MEDS ORDERED: ONDANSETRON INJ 2 MG/ML 2 ML VIAL IV PRN (02:25)
[2023-09-11] MEDS ORDERED: GLUCOSE 40% GEL 15 GM TUBE PO PRN (02:25)
[2023-09-11] MEDS ORDERED: GLUCOSE 10 TAB/TUBE PO PRN (02:25)
[2023-09-11] MEDS ORDERED: MELATONIN 3 MG TAB PO PRN (02:25)
[2023-09-11] MEDS ORDERED: Nursing to Pharmacy Communication SCH (04:30)
[2023-09-11] MEDS: ENOXAPARIN INJ 40 MG/0.4 ML SYR SQ SCH (05:22)
--- NOTE | 2023-09-11 06:56 | XRay Report ---
XR chest 1V not portable CLINICAL HISTORY: Sepsis TECHNIQUE: Single frontal radiograph of the chest was obtained. Comparison: Comparison is made to chest radiograph 05/16/2018 FINDINGS: No lines and tubes are seen. Calcified aortic knob is seen. The lungs are clear. No evidence of pleur al effusion or pneumothorax. IMPRESSION: No acute chest disease. ACT 112: Negative or not required by law. Electronically signed by: Moo Malagon M.D. 09/11/2023 6:55 AM
[2023-09-11 07:01] LABS: Basophils # (auto) 0.02 K/uL (0.00-0.20); Basophils % (auto) 0.4 %; Eosinophils # (auto) 0.07 K/uL (0.00-0.50); Eosinophils % (auto) 1.3 %; Hematocrit (blood only) 36.1 % (37.0-47.0); Hemoglobin 12.1 g/dl (12.0-16.0); Immature Granulocytes # (auto) 0.01 K/uL (0.01-0.20); Immature Granulocytes % (auto) 0.2 %; Lymphocytes # (auto) 1.01 K/uL (1.20-3.40); Lymphocytes % (auto) 18.6 %; Mean Corpuscular Hemoglobin 30.9 pg (25.0-34.0); Mean Corpuscular Hgb Conc 33.5 g/dL (32.0-36.0); Mean Corpuscular Volume 92.3 fL (80.0-100.0); Mean Platelet Volume 10.1 fL (9.4-12.4); Monocytes # (auto) 0.51 K/uL (0.11-0.59); Monocytes % (auto) 9.4 %; Neutrophils # (auto) 3.82 K/uL (1.40-6.50); Neutrophils % (auto) 70.1 %; Platelet Count 125 K/uL (130-400); RDW Coefficient of Variation 14.1 % (11.5-14.5); Red Blood Count 3.91 M/uL (4.20-5.40); White Blood Count 5.44 K/ul (4.8-10.8)
[2023-09-11] MEDS: cefTRIAXone SODIUM 1,000 MG/50 ML BAG IV SCH (07:02)
[2023-09-11 07:24] LABS: BUN Creatinine Ratio 22.4 (10-20); Calcium 9.3 mg/dl (8.6-10.3); Creatinine Clr Calc Pharmacy 63.2 ml/min; Est GFR (African American) 81.7 ml/min; Est GFR (Non-African American) 70.5 ml/min; Magnesium 1.9 mg/dl (1.7-2.4); Potassium 3.9 mmol/L (3.5-5.1)
[2023-09-11] MEDS: INSULIN ASPART PER UNIT CHARGE SC SCH (08:15)
[2023-09-11] MEDS: CEROVITE ADV FORMULA TAB PO SCH (08:19)
[2023-09-11] MEDS: VIBEGRON 75 MG TAB PO SCH (08:19)
[2023-09-11] MEDS: ATENOLOL 50 MG TABLET PO SCH (08:20)
[2023-09-11] MEDS: hydroCHLOROthiazide 25 MG TAB PO SCH (08:20)
[2023-09-11] MEDS: LOSARTAN POTASSIUM 50 MG TAB PO SCH (08:21)
[2023-09-11] MEDS: REMDESIVIR 200 MG in SODIUM CHLORIDE 0.9% 210 ML IV ONE (10:24)
--- NOTE | 2023-09-11 17:05 | Electrocardiogram Report ---
Test Reason : Blood Pressure : / mmHG Vent. Rate : 082 BPM Atrial Rate : 082 BPM P-R Int : 174 ms QRS Dur : 090 ms QT Int : 392 ms P-R-T Axes : 043 -16 034 degrees QTc Int : 457 ms Normal sinus rhythm Normal ECG When compared with ECG of 16-MAY-2018 05:36, No significant change was found Confirmed by Hasmukh Udnerwood ([id number]) on 09/11/2023 5:04:58 PM Referred By: REFERRED SELF Confirmed By:Hasmukh Underwood
--- NOTE | 2023-09-11 17:50 | Hospitalist Progress Note ---
Date of Service September 11, 2023 Assessment & Plan (1) COVID-19 virus infection: Plan: 88-year-old woman admitted with mild COVID, possible UTI, generalized weakness -Previously vaccination against COVID, has not had updated vaccine in some time. - currently not hypoxic, chest x-ray was clear - she is high risk for severe disease because of her age diabetes and obesity, Paxlovid not available to order so start remdesivir x 3 doses (2) Acute UTI (urinary tract infection): Plan: not clearly symptomatic, has baseline urinary incontinence and urge incontinence -UA grossly positive for UTI. Urine cultures pending. -Patient has a severe due to penicillin/amoxicillin have anaphylaxis so was given ertapenem 09/09. - change antibiotics to oral Cipro for 3-day course, follow-up culture (3) Hypomagnesemia: Plan: -Magnesium of 1.5 in the ED. -Repleted in the ED, resolved mag 1.9 today (4) T2DM (type 2 diabetes mellitus): Plan: -Patient's home regimen held on admission -Continue BSG checks, sliding-scale insulin, hypoglycemic protocol - blood glucose at goal (5) HTN (hypertension): Plan: -Continue on home medications. Plan abnormal head CT -Head CT showed no intracranial hemorrhage. 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 -she does not have any symptoms compatible with hydrocephalus. Could be NPH or hydrocephalus ex vacuo (ie atrophy) DVT prophylaxisenoxaparin PT and OT eval 09/10she is clearly below her baseline and is weak they are hopeful she will progress and be able to return home with home health soon. physically not strong enough for safe home discharge today Admission and Anticipated Discharge Date Admission Date: September 11, 2023 Subjective Tameka is feeling better, less short of breath has cough, no dysuria she has baseline urinary urgency and incontinence,feels stronger but not back to baseline, did fair with PT and OT Physical Exam 2 Physical Exam: PHYSICAL EXAMINATION Last 24h vital signs reviewed, see documentation in flowsheet General: comfortable appearing, no distress, sitting up in the chair HEENT: Normocephalic, atraumatic, pupils round and equal, sclerae anicteric, no conjunctival injection, moist mucus membranes Lungs: Normal respiratory effort. Clear to auscultation bilaterally except slightly coarse in the bases. No RRW Heart: Regular rate and rhythm, no murmurs. No JVD Abdomen: Soft, nontender, nondistended. Bowel sounds present. no suprapubic tenderness Extremities: Warm, dry, well-perfused. No extremity edema. Neuro: Alert and oriented x 4, mentally very clear, face symmetric, moves 4 extremities well with 4/5 strength Psych: Normal affect and behavior Results & Data Results & Data Vital Signs (Past 12 Hours) Vital Signs Temp Pulse Resp BP BP Pulse Ox Pulse Ox 09/11/23 15:07 37.5 C 97 H 16 124/77 94 09/11/23 12:02 99 09/11/23 08:08 09/11/23 07:55 36.6 C 70 18 157/85 H 95 O2 Del Method O2 Flow Rate 09/11/23 15:07 Room Air 09/11/23 12:02 0 09/11/23 08:08 Room Air 09/11/23 07:55 Room Air Laboratory Results 09/11/23 06:39 09/11/23 06:39 PG Care Time/CCT Total # of Minutes Spent Total Time Spent with Patient: Total time spent is greater than 50% in coordination of care (as documented) at patient's floor/unit and/or counseling patient: Coding Level of Care Code 05212 SUB INP/OBS CARE 2/35MIN Diagnoses COVID-19 virus infection U07.1 Acute UTI (urinary tract infection) N39.0 Hypomagnesemia E83.42 T2DM (type 2 diabetes mellitus) E11.9 HTN (hypertension) I10
[2023-09-11] MEDS: ATORVASTATIN 10 MG TAB PO SCH (20:57)
[2023-09-11] MEDS: CIPROFLOXACIN 250 MG TAB PO SCH (20:57)
[2023-09-11] MEDS ORDERED: ERTAPENEM SODIUM 1,000 MG in SYRINGE 0 ML IV SCH (21:00)
[2023-09-12 06:32] LABS: Albumin Globulin Ratio 1.2 (0.9-2); Albumin Level 3.7 gm/dl (3.4-5.0); BUN Creatinine Ratio 23.5 (10-20); Bilirubin,Total 0.8 mg/dl (0.2-1.0); Calcium 9.4 mg/dl (8.6-10.3); Creatinine Clr Calc Pharmacy 59.3 ml/min; Est GFR (African American) 75.7 ml/min; Est GFR (Non-African American) 65.3 ml/min; Globulin 3.2 gm/dl (2.5-4.0); Potassium 3.9 mmol/L (3.5-5.1); Total Protein 6.9 gm/dl (6.0-8.3)
[2023-09-12 07:59] LABS: Hematocrit (blood only) 39.4 % (37.0-47.0); Hemoglobin 12.9 g/dl (12.0-16.0); Mean Corpuscular Hemoglobin 30.6 pg (25.0-34.0); Mean Corpuscular Hgb Conc 32.7 g/dL (32.0-36.0); Mean Corpuscular Volume 93.6 fL (80.0-100.0); Mean Platelet Volume 10.3 fL (9.4-12.4); Platelet Count 142 K/uL (130-400); RDW Coefficient of Variation 14.1 % (11.5-14.5); RDW Standard Deviation 48.2 fL (36.4-46.3); Red Blood Count 4.21 M/uL (4.20-5.40); White Blood Count 6.72 K/ul (4.8-10.8)
[2023-09-12] MEDS: REMDESIVIR 100 MG in SODIUM CHLORIDE 0.9% 230 ML IV SCH (11:47)
[2023-09-12] MEDS: PNEUMOCOCCAL VACCINE (PCV20) 20-VAL CONJ-DIP CRM/PF 0.5 ML SYR IM ONE (12:23)
--- NOTE | 2023-09-12 19:18 | Hospitalist Progress Note ---
Date of Service September 12, 2023 Assessment & Plan (1) COVID-19 virus infection: Plan: without evidence of pneumonia/lower respiratory tract infection high risk of disease progression, however thus, she remains on IV Remdesivir - day #2 today defer on steroids cont supportive care add flutter valve add IS add mucinex BID PT, OT when able (2) Acute UTI (urinary tract infection): Plan: 2nd e.coli s/p ertapenem 09/09 then changed to oral Cipro on 09/10 thus, today is day #3 of IV/PO abx plan 5-7 days then stop (3) Hypomagnesemia: Plan: repleted resolved 2nd to HCTZ use will send home on mag supplement at d/c (4) T2DM (type 2 diabetes mellitus): Plan: cont novolog SSI a1c 6.9% in 04/2023 resume PO meds at d/c (5) HTN (hypertension): Plan: Continue on home medications BPs controlled Plan Abnormal head CT -- 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 Could be NPH or hydrocephalus ex vacuo (ie atrophy). Will send to neurology after discharge for evaluation. May need MRI brain as outpatient. DVT prophylaxisenoxaparin daily PT and OT evals done yesterday hopefully she can get re-evaluated tomorrow if stronger perhaps can return home at d/c with updated by phone this evening change observation status to full admission status Admission and Anticipated Discharge Date Admission Date: September 12, 2023 Subjective again feeling a little better/a little stronger today appetite wnl no N/V/D/abd pain mild cough but no dyspnea or BROCK no fevers no dysuria hoping to go home soon is recovering from COVID himself Review of Systems Review of Systems: gen - no fevers or chills cv - no chest pain pulm - no sputum HENT - hoarse voice Physical Exam Physical Exam: gen - coughing, looks tired -- but nontoxic HENT - mild hoarse voice; MMM neck - no JVD heart - RRR, s1 s2, no murmur lungs - minimal fine b/l dry rales bases; no wheeze; no increased work of breathing abd - soft NT ND BS+ ext - no edema, pulses 2+ b/l Results & Data Results & Data Vital Signs (Past 12 Hours) Vital Signs Temp Pulse Resp BP Pulse Ox O2 Del Method 09/12/23 19:32 36.8 C 61 16 119/74 95 Room Air Laboratory Results Laboratory Results - last 48 hr 09/11/23 09/11/23 09/11/23 11:45 16:53 20:45 WBC RBC Hgb Hct MCV MCH MCHC RDW Std Deviation RDW Coeff of Chidi Plt Count MPV Absolute Nucleated RBC Nucleated RBC % (auto) Platelet Estimate Sodium Potassium Chloride Carbon Dioxide Anion Gap BUN Creatinine Est Cr Clr Drug Dosing Est GFR ( Amer) Est GFR (Non-Af Amer) BUN/Creatinine Ratio Glucose POC Glucose 177 H 157 H 164 H Calcium Total Bilirubin AST ALT Alkaline Phosphatase Total Protein Albumin Globulin Albumin/Globulin Ratio 09/12/23 09/12/23 09/12/23 05:22 07:27 07:47 WBC Cancelled 6.72 RBC Cancelled 4.21 Hgb Cancelled 12.9 Hct Cancelled 39.4 MCV Cancelled 93.6 MCH Cancelled 30.6 MCHC Cancelled 32.7 RDW Std Deviation Cancelled 48.2 H RDW Coeff of Chidi Cancelled 14.1 Plt Count Cancelled 142 MPV Cancelled 10.3 Absolute Nucleated RBC Cancelled Nucleated RBC % (auto) Cancelled Platelet Estimate Cancelled Sodium 136 Potassium 3.9 Chloride 100 Carbon Dioxide 29 Anion Gap 7 BUN 19 Creatinine 0.81 Est Cr Clr Drug Dosing 59.3 Est GFR ( Amer) 75.7 Est GFR (Non-Af Amer) 65.3 BUN/Creatinine Ratio 23.5 H Glucose 135 H POC Glucose 155 H Calcium 9.4 Total Bilirubin 0.8 AST 17 ALT 13 Alkaline Phosphatase 49 Total Protein 6.9 Albumin 3.7 Globulin 3.2 Albumin/Globulin Ratio 1.2 09/12/23 09/12/23 09/12/23 11:31 16:25 20:46 WBC RBC Hgb Hct MCV MCH MCHC RDW Std Deviation RDW Coeff of Chidi Plt Count MPV Absolute Nucleated RBC Nucleated RBC % (auto) Platelet Estimate Sodium Potassium Chloride Carbon Dioxide Anion Gap BUN Creatinine Est Cr Clr Drug Dosing Est GFR ( Amer) Est GFR (Non-Af Amer) BUN/Creatinine Ratio Glucose POC Glucose 177 H 138 H 157 H Calcium Total Bilirubin AST ALT Alkaline Phosphatase Total Protein Albumin Globulin Albumin/Globulin Ratio PG Care Time/CCT Total # of Minutes Spent Total Time Spent with Patient: Total time spent is greater than 50% in coordination of care (as documented) at patient's floor/unit and/or counseling patient: Coding Level of Care Code 61184 SUB INP/OBS CARE 2/35MIN Diagnoses COVID-19 virus infection U07.1 Acute UTI (urinary tract infection) N39.0 Hypomagnesemia E83.42 T2DM (type 2 diabetes mellitus) E11.9 HTN (hypertension) I10
[2023-09-12] MEDS: guaiFENesin 600 MG TABCR PO SCH (22:08)
--- NOTE | 2023-09-13 16:16 | Electrocardiogram Report ---
Test Reason : Blood Pressure : / mmHG Vent. Rate : 085 BPM Atrial Rate : 082 BPM P-R Int : 000 ms QRS Dur : 090 ms QT Int : 390 ms P-R-T Axes : 000 -14 038 degrees QTc Int : 464 ms Atrial fibrillation Nonspecific ST abnormality Abnormal ECG When compared with ECG of 10-SEP-2023 20:39, Atrial fibrillation has replaced Sinus rhythm Confirmed by Hasmukh Underwood ([id number]) on 09/13/2023 4:15:56 PM Referred By: REFERRED SELF Confirmed By:Hasmukh Underwood
[2023-09-13] MEDS: ACETAMINOPHEN 325 MG TAB PO PRN (16:41)
--- NOTE | 2023-09-13 20:41 | Hospitalist Progress Note ---
Date of Service September 13, 2023 Assessment & Plan (1) Atrial fibrillation: Plan: patient irregular on heart exam today EKG obtained - jose.romain, rate-controlled no symptoms no prior h/o a.romain transferred to tele for monitoring she is already on atenolol and again rates are controlled nicely with such - will leave as is CHADsVASC score is 11 - strongly advise anticoagulation good candidate for Eliquis will d/w patient check baseline echo check TSH recheck mag and K in am (2) COVID-19 virus infection: Plan: without evidence of pneumonia/lower respiratory tract infection high risk of disease progression, however, thus was given IV Remdesivir - day #3 today overall clinically improved she is 7+ days into her illness - worst is likely behind her cont to defer on steroids cont supportive care cont airborne isolation (3) Acute UTI (urinary tract infection): Plan: 2nd e.coli s/p ertapenem 09/09 then changed to oral Cipro on 09/10 thus, today is day #4 of IV/PO abx plan 7 days then stop (4) Hypomagnesemia: Plan: repleted resolved 2nd to HCTZ use will send home on mag supplement at d/c recheck level am (5) T2DM (type 2 diabetes mellitus): Plan: cont novolog SSI a1c 6.9% in 04/2023 resume PO meds at d/c (6) HTN (hypertension): Plan: Continue on home medications BPs controlled Plan Abnormal head CT -- 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 Could be NPH or hydrocephalus ex vacuo (ie atrophy). Will send to neurology after discharge for evaluation. May need MRI brain as outpatient. 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 Admission and Anticipated Discharge Date Admission Date: September 12, 2023 Subjective again feels better today more energy, better strength cough is unchanged denies any dyspnea or BROCK no fevers or chills or areas of pain in any location appetite wnl Review of Systems Review of Systems: cv - no chest pain pulm - nonproductive cough; no wheeze GI - no diarrhea; constipation (chronic) Physical Exam Physical Exam: gen - looks better today, NAD, minimal coughing HENT - mild hoarse voice somewhat improved; MMM neck - no JVD heart - irregular irregular, s1 s2, no murmur lungs - minimal fine b/l dry rales bases - no change; no wheeze; no increased work of breathing abd - soft NT ND BS+ ext - no edema, pulses 2+ b/l Results & Data Results & Data Vital Signs (Past 12 Hours) Vital Signs Temp Pulse Resp BP Pulse Ox O2 Del Method 09/13/23 20:00 36.5 C 60 18 130/73 94 Room Air 09/13/23 19:17 36.6 C 59 L 16 126/85 94 Room Air 09/13/23 17:59 37.0 C 62 16 98/56 L 93 Room Air Laboratory Results EKG - my reading - a.fib, rate <100 BPM, no ST Changes PG Care Time/CCT Total # of Minutes Spent Total Time Spent with Patient: Total time spent is greater than 50% in coordination of care (as documented) at patient's floor/unit and/or counseling patient: Coding Level of Care Code 29334 SUB INP/OBS CARE 3/50MIN Diagnoses Atrial fibrillation I48.91 COVID-19 virus infection U07.1 Acute UTI (urinary tract infection) N39.0 Hypomagnesemia E83.42 T2DM (type 2 diabetes mellitus) E11.9 HTN (hypertension) I10
[2023-09-14 07:56] LABS: Hematocrit (blood only) 37.6 % (37.0-47.0); Hemoglobin 12.3 g/dl (12.0-16.0); Mean Corpuscular Hemoglobin 30.5 pg (25.0-34.0); Mean Corpuscular Hgb Conc 32.7 g/dL (32.0-36.0); Mean Corpuscular Volume 93.3 fL (80.0-100.0); Mean Platelet Volume 10.6 fL (9.4-12.4); Platelet Count 129 K/uL (130-400); RDW Coefficient of Variation 13.9 % (11.5-14.5); RDW Standard Deviation 47.3 fL (36.4-46.3); Red Blood Count 4.03 M/uL (4.20-5.40); White Blood Count 6.27 K/ul (4.8-10.8)
[2023-09-14 08:19] LABS: Calcium 9.3 mg/dl (8.6-10.3); Creatinine Clr Calc Pharmacy 57.4 ml/min; Est GFR (African American) 74.6 ml/min; Est GFR (Non-African American) 64.3 ml/min; Magnesium 1.7 mg/dl (1.7-2.4); Potassium 3.7 mmol/L (3.5-5.1)
[2023-09-14 08:34] LABS: Thyroid Stimulating Hormone 1.747 uIu/ml (0.300-4.500)
[2023-09-14] MEDS: CIPROFLOXACIN 250 MG TAB PO SCH (11:18)
[2023-09-14] MEDS: ACETAMINOPHEN 500 MG TAB PO STA (12:47)
[2023-09-14] MEDS: LIDOCAINE 5% 1 PATCH TD STA (12:47)
--- NOTE | 2023-09-14 15:28 | Discharge Summary ---
Date of Service September 14, 2023 Admission HPI Per Admitting Provider Patient is an 88-year-old female who presents to the hospital with weakness, cough, fever, and fall. Patient was at home and has been feeling weak over the last few days. Today she felt so weak that she had to have her help her get to and from the bed. She fell from the bedside to her ground. She denies hitting her head or any pain after this fall. Does state though that she had a cough that started today. Denies any fevers at home. Denies any dysuria, abdominal pain, nausea, vomiting, or chest pain. In the ED: COVID-positive, febrile, elevated lactate, and hypomagnesia. Initially required oxygen but at time of admission was on room air satting above 92%. UA suggestive of UTI. Ertapenem started due to allergies to penicillin and amoxicillin. Discharge Exam gen - looks better today, NAD, minimal coughing HENT - mild hoarse voice somewhat improved; MMM neck - no JVD heart - irregular irregular, s1 s2, no murmur lungs - minimal fine b/l dry rales bases - no change; no wheeze; no increased work of breathing abd - soft NT ND BS+ ext - no edema, pulses 2+ b/l Discharge Data Allergies Allergy/AdvReac Type Severity Reaction Status Date / Time amoxicillin Allergy Severe Anaphylaxis Verified 09/10/23 22:00 Penicillins Allergy Severe Anaphylaxis Verified 09/10/23 22:00 Consultations 09/10/23 23:56 ED Decision to Admit Stat Ordered Studies 09/10/23 22:13 CT head/brain wo con Stat Hospital Course (1) Atrial fibrillation: patient irregular on heart exam today EKG obtained - a.fib, rate-controlled no symptoms no prior h/o a.fib transferred to tele for monitoring she is already on atenolol and again rates are controlled nicely with such - will leave as is CHADsVASC score is 11 - strongly advise anticoagulation good candidate for Eliquis will d/w patient check baseline echo check TSH recheck mag and K in am (2) COVID-19 virus infection: without evidence of pneumonia/lower respiratory tract infection high risk of disease progression, however, thus was given IV Remdesivir - day #3 today overall clinically improved she is 7+ days into her illness - worst is likely behind her cont to defer on steroids cont supportive care cont airborne isolation (3) Acute UTI (urinary tract infection): 2nd e.coli s/p ertapenem 09/09 then changed to oral Cipro on 09/10 thus, today is day #4 of IV/PO abx plan 7 days then stop (4) Hypomagnesemia: repleted resolved 2nd to HCTZ use will send home on mag supplement at d/c recheck level am (5) T2DM (type 2 diabetes mellitus): cont novolog SSI a1c 6.9% in 04/2023 resume PO meds at d/c (6) HTN (hypertension): Continue on home medications BPs controlled Plan Abnormal head CT -- 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 Could be NPH or hydrocephalus ex vacuo (ie atrophy). Will send to neurology after discharge for evaluation. May need MRI brain as outpatient. Will discuss informally with neuro if anticoagulation is contraindicated (I don't see any reason to not anticoagulate for her a.fib but, again, will run it by neuro). DVT prophylaxisenoxaparin daily PT and OT appreciated cleared for home - they advise home PT/OT during her recovery updated by phone this evening once again watch overnight due to #1 hopefully home tomorrow moving to med-tele for observation of newly discovered a.fib Home Health Attestation I certify that this patient is under my care and that I, or a physicians assistant business manager working with me, had a face to-face encounter that meets the home health kzqo-rh-uihz encounter requirements with this patient. The encounter with the patient was in whole, or in part, for the following medical condition, which is the primary reason for home health care (list medical condition): I certify that, based on my findings, the following services are medically necessary home health services: My clinical findings support the need for the above services because: Further, I certify that my clinical findings support that this patient is homebound (i.e. absences from home require considerable and taxing effort and are for medical reasons or restoration services or infrequently or of short duration when for other reasons) because: Certification for Home Health Services: Based on the above findings, I certify that this patient is confined to the home and needs intermittent residential care, physical therapy and/or speech therapy or continues to need occupational therapy. The patient is under my care, and I have initiated the establishment of the plan of care. This patient will be followed by a physician who will periodically review the plan of care. Discharge Plan Discharge Items Patient Disposition: Home - Home Health Services Reason For Visit: COVID Discharge Diagnosis: 1. COVID-19 infection 2. Urinary tract infection 3. Atrial fibrillation - resolved, back to normal rhythm 4. 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 CT head with enlarged ventricles - Neurology follow-up needed Activity: As commented below Activity Comment: gradually increase activities over the next 7-10 days Non-emergency contact: Primary Care Provider and Neurologist Call non-emergency contact if: you have any medication questions and your symptoms worsen Follow-up/Referrals: Nader Ingram MD [Physician] - 12/06/23 9:00 am Winston Ornelas DO [Primary Care Provider] - 09/19/23 10:40 am (With Dr. Carranza) Diet: Carb Consistent or DM2 Addtl Attending Provider Instructions: Mrs Landin, You were hospitalized due to COVID-19 infection and urinary tract infection. Fortunately the COVID infection did not cause pneumonia. You did receive IV remdesivir medication for your COVID. You received antibiotics for the urinary infection. Your COVID symptoms, fatigue, etc gradually improved while here. Your stay was complicated by an episode of atrial fibrillation. We discovered this on 09/13/23. Fortunately your atrial fibrillation went back to normal rhythm. Echocardiogram of your heart showed normal heart function. See handouts on a.fib. Finally, you complained of mild back pain on the right side. This is likely a muscle strain from coughing, sleeping poorly, or a combination of factors. Recommendations - 1. would plan to stay at home and rest over the next few days. If you are feeling well by Monday, 09/17 (COVID symptoms improving, no fever, etc), you can resume normal activities in the community then. I would wear a mask for about a week once you start to go back out into the community. 2. fjzv-iaz-ynvsyfr mucinex 600mg twice daily as needed for cough/congestion 3. ylgw-mdx-zqzhdls tylenol 1000mg every 8 hours as needed for back pain; maximum 3000mg in 24 hours 4. nwxu-ijq-ghqtucj "Salonpas" for your back pain; these are pain patches; follow the directions on the box; try a heating pad on your back as well for comfort 5. ciprofloxacin 250mg twice daily x 3 days, first dose TONIGHT, for urinary infection; most common side effect - diarrhea 6. LOWER your hydrochlorothiazide to 12.5mg once daily; this is a blood pressure water pill 7. take magnesium supplement 400mg once daily to keep your magnesium levels normal 8. take Eliquis blood thinner - 5mg twice daily every day - for atrial fibrillation; start 09/15/23 AM; most common side effect is bleeding (see below) 9. due to the old stroke and the enlarged ventricles seen on CT scan of the head we are recommending follow-up with [facility] Neurology - see appt information 10. you likely have another 7-10 days of COVID symptoms and recovery ahead; it is ok to rest when needed; focus on good hydration & nutrition during your recovery period; last symptoms to resolve - cough & fatigue Return to [facility] if - * you have fever over 100 degrees * you have bleeding from any location as listed in this document * you have worsening shortness of breath * you have chest pains * you have worsening back pain * you have severe diarrhea * any other concerns It was our pleasure to care for you! -Dr Pickett Addtl [employer] Provider Instructions: Blood Thinner (Anticoagulant) Medication Instructions: Your atrial fibrillation is typically treated with an anticoagulant. Anticoagulants will thin your blood to help prevent new clots from forming in your heart. This reduces the risk of stroke from atrial fibrillation. Your blood thinner is "ELIQUIS." Your dose is 5mg twice daily - start the AM of 09/15/23. * You should take your medication exactly as directed. * Never skip a dose. * Never take a double dose. If you miss a dose, take it as soon as you remember. Call your Primary Care doctor if you experience any of the following: * Chest Pain * Sudden Shortness of Breath * Rapid or pounding heart beat * Fainting * Dizziness * Cough with blood or bloody sputum * Sweating more than normal * Bruises * Heavy or uncontrolled bleeding * Blood in your urine, stool or vomit * Black or tarry stools * Heavy nose bleeding Pending Studies at Discharge: No Stand-Alone Forms: My [facility] Telepath, Smoking Cessation Medications and DC Order Prescriptions: New Eliquis 5 mg tablet 5 mg PO BID Qty: 60 2RF ciprofloxacin HCl 250 mg Tablet 250 mg PO BID 3 Days Qty: 6 0RF magnesium oxide 400 mg magnesium tablet 400 mg PO DAILY Qty: 30 2RF Continued atorvastatin 10 mg tablet 10 mg PO HS Qty: 90 3RF metformin 1,000 mg tablet 1,000 mg PO BID 90 Days Qty: 180 3RF (DME) FreeStyle Sury 2 [place] Misc See Rx Instructions .MEDSUPPLY Qty: 1 0RF Rx Instructions: Use to monitor blood sugars daily (DME) FreeStyle Sury 2 Sensor Kit See Rx Instructions .MEDSUPPLY Qty: 2 11RF Rx Instructions: Change sensor every 14 days docusate sodium [Colace] 100 mg capsule 100 mg PO BID PRN (Reason: Constipation) (DME) OneTouch Verio test strips Strip See Rx Instructions .Route Rx Instructions: test 1 time daily (DME) lancets [OneTouch Delica Lancets] 33 gauge misc See Rx Instructions .ROUTE .MEDSUPPLY Qty: 100 Rx Instructions: Test blood sugar 1 times a day Centrum Silver Women 8 mg iron-400 mcg-300 mcg tablet 1 tab PO DAILY losartan 100 mg tablet 50 mg PO DAILY loratadine [Claritin] 10 mg tablet 10 mg PO DAILY PRN (Reason: allergies) Trulicity 1.5 mg/0.5 mL pen injector 1.5 mg SUBCUT WK atenolol 100 mg tablet 100 mg PO DAILY clobetasol 0.05 % ointment 1 applic TOPICAL BID PRN (Reason: as needed for scalp) clobetasol 0.05 % spray,non-aerosol 1 applic TOPICAL BID Changed hydrochlorothiazide 25 mg tablet 12.5 mg PO DAILY Qty: 1 0RF Held Myrbetriq 50 mg tablet extended release 24 hr 50 mg PO DAILY Qty: 90 3RF Hold Instructions: since it doesn't seem to be helping your symptoms would HOLD for now Discharge Orders: Discharge Order (Routine); Ordered 09/14/23 Ordered By: Pito Madison/Other Patient Handouts: Apixaban Oral Tablet, Ciprofloxacin Oral Tablet, AFib Dc, AFib Preventing Stroke Admission Data Admit Date/Time: 09/12/23 14:33 Attending Provider: Pito Pickett Admit Provider: Khoa Kevin Primary Care Provider: Winston Ornelas Other Providers: Porfirio Hdez Other Interventions: Discharge Summary Assessment (RN) Last Done: 09/14/23 15:25 Coding Diagnoses Atrial fibrillation I48.91 COVID-19 virus infection U07.1 Acute UTI (urinary tract infection) N39.0 Hypomagnesemia E83.42 T2DM (type 2 diabetes mellitus) E11.9 HTN (hypertension) I10
--- NOTE | 2023-09-14 16:18 | XCELERA ---
[id number]
--- NOTE | 2023-09-15 00:15 | Billing Data ---
Date of Service September 15, 2023 Coding Level of Care Code 71315 INT INP/OBS CARE
== END 2023-09-14 16:07 | disposition home health service (06) | DRG 178 ==
LOC: 3E 20:32 → ED 20:32 → SUATTDRO 09-11 00:53 → 3E 09-11 01:45 → 2N 09-13 19:57